=== PATIENT | female | born 1970 | race Caucasian/White ===

== ENCOUNTER → 2019-10-01 16:14 | Outpatient (BNVA) | payer MEDICARE, MEDICAID, SELFPAY | PROVIDERS: Family Provider Nurse Practitioner Family; PCP Nurse Practitioner Family; Visit Provider Nurse Practitioner Family | DX: J02.9 Acute pharyngitis, unspecified (principal); J06.9 Acute upper respiratory infection, unspecified | CPT/HCPCS: 87880 ==

== ENCOUNTER → 2019-12-17 10:43 | Outpatient (BNVA) | payer MEDICARE, MEDICAID, SELFPAY | PROVIDERS: Family Provider Nurse Practitioner Family; PCP Nurse Practitioner Family; Visit Provider Nurse Practitioner Family | DX: R39.9 Unspecified symptoms and signs involving the genitourinary system (principal); R10.31 Right lower quadrant pain | CPT/HCPCS: 81000 ==

== ENCOUNTER → 2020-01-02 12:11 | Outpatient (BNVA) | payer MEDICARE, MEDICAID, SELFPAY | PROVIDERS: Family Provider Nurse Practitioner Family; PCP Nurse Practitioner Family; Visit Provider Nurse Practitioner Family | DX: L98.9 Disorder of the skin and subcutaneous tissue, unspecified (principal) | CPT/HCPCS: 88305 ==

== ENCOUNTER → 2020-05-21 10:01 | Outpatient (BNVA) | payer MEDICARE, MEDICAID, SELFPAY | PROVIDERS: Family Provider Nurse Practitioner Family; PCP Nurse Practitioner Family; Visit Provider Nurse Practitioner Family | DX: Z11.59 Encounter for screening for other viral diseases (principal); Z20.828 Contact with and (suspected) exposure to other viral communicable diseases; R05 Cough | CPT/HCPCS: 87635 ==

== ENCOUNTER → 2020-11-04 10:59 | Outpatient (BNVA) | payer MEDICARE, MEDICAID, SELFPAY | PROVIDERS: Family Provider Nurse Practitioner Family; PCP Nurse Practitioner Family; Visit Provider Nurse Practitioner Family | DX: I10 Essential (primary) hypertension (principal) | CPT/HCPCS: 80053; 80061; 84443 ==

== ENCOUNTER → 2021-01-14 09:41 | Outpatient (BNVA) | payer MEDICARE, MEDICAID, SELFPAY | PROVIDERS: Family Provider Nurse Practitioner Family; PCP Nurse Practitioner Family; Visit Provider Nurse Practitioner Family | DX: I10 Essential (primary) hypertension (principal); E78.5 Hyperlipidemia, unspecified | CPT/HCPCS: 80061 ==

== ENCOUNTER → 2021-02-10 08:27 | Outpatient (BNVA) | payer MEDICARE, MEDICAID, SELFPAY | PROVIDERS: Family Provider Nurse Practitioner Family; PCP Nurse Practitioner Family; Visit Provider Nurse Practitioner Family | DX: R05 Cough (principal); Z20.822 Contact with and (suspected) exposure to COVID-19 | CPT/HCPCS: 87635 ==

== ENCOUNTER → 2021-11-26 08:29 | Outpatient (BNVA) | payer MEDICARE, MEDICAID, SELFPAY | PROVIDERS: Family Provider Nurse Practitioner Family; PCP Nurse Practitioner Family; Visit Provider Nurse Practitioner Family | DX: I10 Essential (primary) hypertension (principal); F41.9 Anxiety disorder, unspecified | CPT/HCPCS: 80053; 80061; 84443 ==

== ENCOUNTER → 2022-09-01 09:05 | Outpatient (BNVA) | payer MEDICARE, MEDICAID, SELFPAY | PROVIDERS: Family Provider Nurse Practitioner Family; PCP Nurse Practitioner Family; Visit Provider Nurse Practitioner Family | DX: M25.50 Pain in unspecified joint (principal); I10 Essential (primary) hypertension; F41.9 Anxiety disorder, unspecified; R68.89 Other general symptoms and signs | CPT/HCPCS: 80053; 80061; 84439; 84443; 84481; 84550; 86038; 86431 ==

== ENCOUNTER → 2022-09-06 11:36 | Outpatient (BNVA) | payer MEDICARE, MEDICAID, SELFPAY | PROVIDERS: Family Provider Nurse Practitioner Family; PCP Nurse Practitioner Family; Visit Provider Nurse Practitioner Family | DX: E55.9 Vitamin D deficiency, unspecified (principal); M25.50 Pain in unspecified joint; R42 Dizziness and giddiness | CPT/HCPCS: 82306; 83735 ==

== ENCOUNTER → 2023-01-14 10:31 | Outpatient (BNVA) | payer MEDICARE, MEDICAID, SELFPAY | PROVIDERS: Family Provider Nurse Practitioner Family; PCP Nurse Practitioner Family; Visit Provider Otolaryngology | DX: M89.8X8 Other specified disorders of bone, other site (principal) | CPT/HCPCS: 99203 ==

== ENCOUNTER 2023-01-20 06:59 | Outpatient (CLI) | payer MEDICARE, MEDICAID, SELFPAY ==
--- NOTE | 2023-01-20 07:00 | CT_ITS ---
WS: [id number] CT HEAD TECHNIQUE: Noncontrast CT of the head obtained from the skullbase to the vertex. CLINICAL INFORMATION: evaluation of the styloid proccess COMPARISON: 2013 DLP: 1209.[address] scans at [facility] use at least one of these dose optimization techniques: automated e xposure control; mA and/or kV adjustment per patient size (includes targeted exams where dose is matc hed to clinical indication); or iterative reconstruction. FINDINGS: No evidence of intracranial hemorrhage or mass effect. Prior postoperative changes occipital cranioto my with suboccipital craniectomy. Chiari decompression. Postoperative changes are new since 2013. Chr onic encephalomalacia LEFT parasagittal cerebellum. Normal 4th ventricle. No hydrocephalus. Benign basal ganglia calcifications. No extra-axial fluid collections. Paranasal sinuses and mastoid air cells well aerated. No other suspicious findings. CT/CT head wo con* [id number] IMPRESSION: 1. No evidence of intracranial hemorrhage or mass effect. 2. Interval postoperative changes Chiari decompression. No hydrocephalus. Norm al 4th ventricle. 3. Chronic encephalomalacia in the LEFT parasagittal cerebellum may be postope rative sequela. 4. Mild intracranial vascular calcification. 5. No other suspicious findings.
--- NOTE | 2023-01-20 07:30 | CT_ITS ---
WS: [id number] CT NECK TECHNIQUE: Noncontrast CT of the neck with coronal and sagittal reformatted images. CLINICAL INFORMATION: examination of the styloid proccess. Pain in throat, headaches, dizziness, COMPARISON: None. DLP: 1209.[address] scans at [facility] use at least one of these dose optimization techniques: automated e xposure control; mA and/or kV adjustment per patient size (includes targeted exams where dose is matc hed to clinical indication); or iterative reconstruction. FINDINGS:Styloid process on the RIGHT measures 2.3 CM. LEFT styloid process measures 2.2 CM within no rmal limits (Normal less than 3 cm). 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 Mastoid air cells are well aerated. Partially visualized paranasal sinuses are well aerated. Normal p osterior nasopharynx. Normal parapharyngeal fat. Lung apices are well aerated. Parotid glands are nor mal. Normal submandibular glands. Straightening of the normal cervical lordosis. Slight anterolisthes is C4 on C5. No evidence of supraglottic or glottic mass. Normal subglottic airway. No cervical lymphadenopathy. Dental artifact degrades some images. Moderate to advanced RIGHT facet arthropathy RIGHT C4-C5 and LEFT C5-C6. CT/CT neck wo con [id number] IMPRESSION: 1. No evidence of supraglottic or glottic mass. 2. No cervical lymphadenopathy. 3. Normal salivary glands. 4. A few tiny nodules in the thyroid. 5. Styloid processes within normal limits measuring less than 3 cm. 6. Mastoid air cells are well aerated. 7. Grade 1 anterolisthesis C4 on C5. Recommend Flexion-extension radiographs f or instability. 8. Moderate to advanced facet arthropathy RIGHT C4-C5 and LEFT C5-C6.
== END 2023-01-20 07:00 | disposition home or self-care (01) ==
PROVIDERS: PCP Nurse Practitioner Family; Visit Provider Otolaryngology
DX: M89.8X8 Other specified disorders of bone, other site (principal); M47.812 Spondylosis without myelopathy or radiculopathy, cervical region; G93.89 Other specified disorders of brain
CPT/HCPCS: 70450; 70490

== ENCOUNTER → 2023-01-21 09:45 | Outpatient (BNVA) | payer MEDICARE, MEDICAID, SELFPAY | PROVIDERS: PCP Nurse Practitioner Family; Visit Provider Otolaryngology | DX: Z71.1 Person with feared health complaint in whom no diagnosis is made (principal) | CPT/HCPCS: 99213; 99214 ==

== ENCOUNTER 2023-01-26 16:15 | Observation (INO) | payer MEDICARE, MEDICAID, SELFPAY ==
[2023-01-26] VITALS (13 sets, daily range): BP systolic 109–171; BP diastolic 68–105; PULSE 21–80; RESP 11–24; TEMP 36.5–36.7; O2SAT 92–100
--- NOTE | 2023-01-26 16:18 | ECG_ITS ---
[facility] Test Date: 2023-01-26 Pat Name: Philomena De La Rosa Department: Room: Gender: Female Beamer Hand: : 1970 Requested By: Christina Story Order Number: [id number] Crys MD: Kaleigh Atkinson M.D. Measurements Intervals [place] Rate: 72 P: 62 CT: 172 QRS: 88 QRSD: 130 T: 2 QT: 413 QTc: 453 Interpretive Statements SINUS RHYTHM POSSIBLE LEFT ATRIAL ENLARGEMENT [-0.1mV P-WAVE IN V1/V2] MODERATE INTRAVENTRICULAR CONDUCTION DELAY [110+ ms QRS DURATION] ST DEVIATION AND MODERATE T-WAVE ABNORMALITY, CONSIDER ANTERIOR ISCHEMIA [-0.1+ mV T-WAVE IN V3/V4] No previous ECG available for comparison Electronically Signed On 01-27-2023 11:03:29 CDT by Kaleigh Atkinson M.D. [id number]
--- NOTE | 2023-01-26 16:18 | XR_ITS ---
WS: [id number] Exam: XR chest 1V portable [id number] Date/Time of Exam: 01/26/2023 4:21 PM Reason For Exam: chest pain Comparison 03/27/2013. The lungs are fully expanded and clear. A rounded density superimposes the left lower lung zone and p robably represents a nipple shadow or a button. Bony structures are intact. Normal cardiomediastinal silhouette. XR/XR chest 1V portable [id number] IMPRESSION: 1. No acute cardiopulmonary finding.
[2023-01-26 16:51] LABS: Basophils # 0.1 10^3/uL (0.0-0.1); Basophils % 0.9 %; Eosinophils # 0.1 10^3/uL (0.0-0.8); Eosinophils % 1.6 %; Hematocrit 39.2 % (37.0-47.0); Hemoglobin 11.7 g/dL (11.5-15.3); Lymphocytes # 2.1 10^3/uL (0.8-4.8); Lymphocytes % 36.7 %; Mean Corpuscular HGB Conc 29.8 g/dL (30.0-36.0); Mean Corpuscular Hemoglobin 27.5 pg (28.0-34.0); Mean Corpuscular Volume 92.2 fl (81-99); Mean Platelet Volume 11.4 fL (7.4-10.4); Monocytes # 0.5 10^3/uL (0.2-0.9); Monocytes % 7.9 %; Neutrophils # 3.06 10^3/uL (1.8-7.7); Neutrophils % 52.7 %; Nucleated Red Blood Cells % 0 %; Platelet Count 180 10^3/cmm (130-400); Red Blood Count 4.25 10^6/uL (4.1-5.3); Red Cell Distribution Width 15.3 % (12.1-15.1); White Blood Count 5.8 10^3/uL (4.0-10.0)
[2023-01-26 17:09] LABS: Troponin(5th) Baseline 6 ng/L (0-10)
[2023-01-26 17:14] LABS: Alanine Aminotransferase 12 U/L (0-33); Albumin Level 4.3 g/dL (3.5-5.2); Alkaline Phosphatase 84 U/L (35-105); Anion Gap 15.2 (5-19); Aspartate Amino Transferase 15 U/L (0-32); Blood Urea Nitrogen 8 mg/dL (6-20); Calcium 8.6 mg/dL (8.5-10.5); Carbon Dioxide 19 mmol/L (22-29); Chloride 107 mmol/L (98-107); Globulin 2.3 g/dL (1.3-4.6); Glomerular Filtration Rate 87.5 mL/min (90-130); Glucose 85 mg/dL (65-115); Osmolality Calculated 284 mOsm/kg (285-295); Potassium 3.2 mmol/L (3.5-5.1); Sodium 138 mmol/L (136-145); Total Bilirubin 0.3 mg/dL (0.15-1.2); Total Protein 6.6 g/dL (6.6-8.7)
--- NOTE | 2023-01-26 17:42 | W.ED.CHESTPA ---
Documented by User: Eran Palacios DO 01/26/23 17:44 HPI - Chest Pain General: Chief Complaint: Chest Pain Stated Complaint: Chest pain, Head pain, Left arm pain Time Seen by Provider: 01/26/23 16:55 History of Present Illness: Patient presents ER with left-sided chest pain that radiates to the back also to the left arm patient does have a Chiari malformation which makes her left side of her head hurt and left side of her neck hurt frequently. Patient is nauseous today. Patient recently states that her doctor diagnosed her with POTS syndrome however she is on for sure if she actually has it. Patient states the chest pain is worsened today with no known cause. Review of Systems General: Reports: 10 or more systems reviewed and unremarkable except in HPI and below PFSH ED PFSH: Medical History Anxiety History of Chiari malformation Surgical History History of brain shunt Family History Mother CAD (coronary artery disease) Lung disease Father CAD (coronary artery disease) Social History Smoking and tobacco status: never smoked Second hand smoke exposure: No Smoking risk assessment/counseling performed?: No Alcohol intake: never Desire information about alcohol rehabilitation?: No Counseling given: No Substance/Drug Use: never Desire information about substance/drug rehabilitation?: No Counseling given: No Adopted: No Lives independently: Yes Household members: children Current gender identity: Female Special mercedes needs: No Physical Exam Const: COMMON NORMALS: no acute distress, average body habitus, patient oriented x3, no limitations, healthy appearing, alert and well nourished HENMT: COMMON NORMALS: normocephalic, atraumatic, hearing grossly normal bilaterally, external ears normal, Normal external nose present and moist oral mucous membranes HEAD & SCALP: normocephalic and atraumatic NOSE: Normal external nose present EXTERNAL EAR: Yes external ears normal Neck/C-Spine: COMMON NORMALS: no JVD Chest: COMMONS NORMALS: normal inspection of the chest and normal palpation of entire chest wall Resp: COMMON NORMALS: normal respiratory effort, No retractions, No use of accessory muscles and clear to auscultation bilaterally AUSCULTATION: clear to auscultation bilaterally Cardio: COMMON NORMALS: no JVD, regular rate, regular rhythm, S1 normal heart sound present, S2 normal heart sound present, No gallops present (Cardio), No clicks present (Cardio), No murmurs present (Cardio) and No rub (Cardio) RATE: regular rate RHYTHM: regular rhythm HEART SOUNDS: S1 normal heart sound present and S2 normal heart sound present GI: COMMON NORMALS: Normal to inspection, nondistended, normoactive bowel sounds present, Soft to palpation, non-tender, No hepatosplenomegaly present and no masses PALPATION: Yes Soft to palpation and Yes No hepatosplenomegaly present : COMMON NORMALS: Yes no CVA tenderness BLADDER/KIDNEY EXAM: Yes no CVA tenderness Back/Pelvis: COMMON NORMALS: no CVA tenderness Neuro: COMMON NORMALS: patient oriented x3 SENSORIUM/ORIENTATION: Yes alert Course Vital Signs: Vital signs: Vital Signs Temperature 97.3 F L 01/27/23 07:36 Pulse Rate 72 01/27/23 14:22 Respiratory Rate 19 H 01/27/23 07:36 Blood Pressure 107/68 01/27/23 14:22 Pulse Oximetry 99 01/27/23 07:36 Oxygen Delivery Me thod Room Air 01/27/23 07:36 MDM - Chest Pain Differential Diagnosis Unlikely acute massive pulmonary embolism, acute respiratory failure, acute myocardial infarction, cardiac arrest or sudden cardiac Medical Records I reviewed the patient's medical records. Lab Data I reviewed the patient's lab results. 01/26/23 16:42 01/27/23 04:20 Radiology Impressions Chest X-Ray 01/26/23 16:18 IMPRESSION: 1. No acute cardiopulmonary finding. Head/Neck CTA 01/26/23 18:42 IMPRESSION: 1. No large artery occlusion or stenosis. 2. No acute intracranial abnormality. IMPRESSION: 1. No large artery occlusion or stenosis. COMMENTS: Consistent with the [place] [employer]'s Incidental Findings Committee white paper (J Am Kip Radiol 2015): In patients aged 35 years and older with an incidental thyroid nodule equal to or greater than 1.[address], MRI or extrathyroidal US, further evaluation with dedicated thyroid US is recommended for patients with normal life expectancy and without comorbidities. For smaller nodules without suspicious features, no further evaluation or follow up is recommended. REFERENCES: NASCET CRITERIA. The degree of stenosis in the cervical segment of the internal carotid artery is based on NASCET criteria. Normal is no stenosis. Mild is less than 50% stenosis. Moderate is 50-69% stenosis. Severe is 70% to 99% stenosis. Total occlusion is no detectable patent lumen. Laboratory Results WBC 5.8 10^3/uL (4.0-10.0) 01/26/23 16:42 RBC 4.25 10^6/uL (4.1-5.3) 01/26/23 16:42 Hgb 11.7 g/dL (11.5-15.3) 01/26/23 16:42 Hct 39.2 % (37.0-47.0) 01/26/23 16:42 MCV 92.2 fl (81-99) 01/26/23 16:42 MCH 27.5 pg (28.0-34.0) L 01/26/23 16:42 MCHC 29.8 g/dL (30.0-36.0) L 01/26/23 16:42 RDW 15.3 % (12.1-15.1) H 01/26/23 16:42 Plt Count 180 10^3/cmm (130-400) 01/26/23 16:42 MPV 11.4 fL (7.4-10.4) H 01/26/23 16:42 Neut % (Auto) 52.7 % 01/26/23 16:42 Lymph % (Auto) 36.7 % 01/26/23 16:42 Taliaferro % (Auto) 7.9 % 01/26/23 16:42 Eos % (Auto) 1.6 % 01/26/23 16:42 Baso % (Auto) 0.9 % 01/26/23 16:42 Neut # (Auto) 3.06 10^3/uL (1.8-7.7) 01/26/23 16:42 Lymph # (Auto) 2.1 10^3/uL (0.8-4.8) 01/26/23 16:42 Taliaferro # (Auto) 0.5 10^3/uL (0.2-0.9) 01/26/23 16:42 Eos # (Auto) 0.1 10^3/uL (0.0-0.8) 01/26/23 16:42 Baso # (Auto) 0.1 10^3/uL (0.0-0.1) 01/26/23 16:42 Nucleated RBC % (auto) 0 % 01/26/23 16:42 Nucleated RBCs # 0.0 /100WBC 01/26/23 16:42 Sodium 138 mmol/L (136-145) 01/26/23 16:42 Potassium 3.2 mmol/L (3.5-5.1) L 01/26/23 16:42 Chloride 107 mmol/L (98-107) 01/26/23 16:42 Carbon Dioxide 19 mmol/L (22-29) L 01/26/23 16:42 Anion Gap 15.2 (5-19) 01/26/23 16:42 BUN 8 mg/dL (6-20) 01/26/23 16:42 Creatinine 0.7 mg/dL (0.5-0.9) 01/26/23 16:42 GFR Calculation 87.5 mL/min (90-130) L 01/26/23 16:42 Glucose 85 mg/dL (65-115) 01/26/23 16:42 Calculated Osmolality 284 mOsm/kg (285-295) L 01/26/23 16:42 Calcium 8.6 mg/dL (8.5-10.5) 01/26/23 16:42 Magnesium 1.9 mg/dL (1.7-2.3) 01/26/23 18:38 Total Bilirubin 0.3 mg/dL (0.15-1.2) 01/26/23 16:42 AST 15 U/L (0-32) 01/26/23 16:42 ALT 12 U/L (0-33) 01/26/23 16:42 Alkaline Phosphatase 84 U/L (35-105) 01/26/23 16:42 Troponin T Baseline 6 ng/L (0-10) 01/26/23 16:42 Troponin T 120 Minute 6.00 ng/L (0-10) 01/26/23 18:38 Delta Troponin T 0 ABS# (0-10) 01/26/23 18:38 Total Protein 6.6 g/dL (6.6-8.7) 01/26/23 16:42 Albumin 4.3 g/dL (3.5-5.2) 01/26/23 16:42 Globulin 2.3 g/dL (1.3-4.6) 01/26/23 16:42 Lipase 22 U/L (13-60) 01/26/23 18:38 Nasal Influ A H1 2009 PCR Not detected (NOT DETECT) 01/26/23 19:25 Adenovirus (PCR) Not detected (NOT DETECT) 01/26/23 19:25 C. pneumoniae DNA (PCR) Not detected (NOT DETECT) 01/26/23 19:25 Coronavirus 229E (PCR) Not detected (NOT DETECT) 01/26/23 19:25 Human Metapneumovir PCR Not detected (NOT DETECT) 01/26/23 19:25 Influenza A (H1) PCR Not detected (NOT DETECT) 01/26/23 19:25 Influenza A (H3) PCR Not detected (NOT DETECT) 01/26/23 19:25 Influenza Type A (PCR) Not detected (NOT DETECT) 01/26/23 19:25 Influenza Type B (PCR) Not detected (NOT DETECT) 01/26/23 19:25 M. pneumoniae (PCR) Not detected (NOT DETECT) 01/26/23 19:25 Parainfluenza 1 (PCR) Not detected (NOT DETECT) 01/26/23 19:25 Parainfluenza 2 (PCR) Not detected (NOT DETECT) 01/26/23 19:25 Parainfluenza 3 (PCR) Not detected (NOT DETECT) 01/26/23 19:25 Parainfluenza 4 (PCR) Not detected (NOT DETECT) 01/26/23 19:25 RSV Type A (PCR) Not detected (NOT DETECT) 01/26/23 19:25 RSV Type B (PCR) Not detected (NOT DETECT) 01/26/23 19:25 Entero/Rhino (PCR) Not detected (NOT DETECT) 01/26/23 19:25 SARS-CoV-2 (PCR) Not detected (NOT DETECT) 01/26/23 19:25 EKG Data EKG 1: I personally reviewed and interpreted this EKG as follows: EKG interpretation date: 01/26/23 EKG interpretation time: 16:28 Prior EKG tracings: not available for review Interpretation: EKG showed ventricular rate 72 beats a minute, [place] interval 172, QRS 130, QTc 453, sinus rhythm, possible left atrial argument, moderate intraventricular conduction delay, ST deviation and moderate T wave abnormality consider anterior ischemia negative T waves in V3 V4 Discharge Plan Discharge Patient Disposition: Placed in Observation Admit Provider: Walt Rose Clinical Impression: Chest pain Discharge Diet: Cardiac Discharge Activity: Resume usual activity and Increase activity as tolerated Coding Level of Care Code ED Mechanism Assembler for Chg Fwd Documented by User: Alton Romo MD 02/08/23 04:27 HPI - Chest Pain General: Chief Complaint: Chest Pain Stated Complaint: Chest pain, Head pain, Left arm pain Time Seen by Provider: 01/26/23 16:55 PFSH ED PFSH: Medical History Anxiety History of Chiari malformation Surgical History History of brain shunt Family History Mother CAD (coronary artery disease) Lung disease Father CAD (coronary artery disease) Social History Smoking and tobacco status: never smoked Second hand smoke exposure: No Smoking risk assessment/counseling performed?: No Alcohol intake: never Desire information about alcohol rehabilitation?: No Counseling given: No Substance/Drug Use: never Desire information about substance/drug rehabilitation?: No Counseling given: No Adopted: No Lives independently: Yes Household members: children Current gender identity: Female Special mercedes needs: No Course Vital Signs: Vital signs: Vital Signs Temperature 97.3 F L 01/27/23 07:36 Pulse Rate 72 01/27/23 14:22 Respiratory Rate 19 H 01/27/23 07:36 Blood Pressure 107/68 01/27/23 14:22 Pulse Oximetry 99 01/27/23 07:36 Oxygen Delivery Me thod Room Air 01/27/23 07:36 MDM - Chest Pain Medical Decision Making Patient care handoff received from Dr. Palacios pending completion of ED evaluation. Patient received additional treatment for symptoms and subsequently reported some abnormal feeling on the left side of her face. I evaluated the patient, no evidence of allergic reaction, no clear focal neurologic deficits though patient does have complex history and reports headache worse than baseline and different than baseline. Repeat troponin is negative. No clear Laboratory etiology of patient's symptoms. Chest x-ray with no lobar consolidation or pneumothorax. CTA of head and neck demonstrates no acute abnormality. Patient continues to have discomfort on reassessment and her chest. Patient's EKG demonstrates sinus bradycardia with nonspecific interventricular conduction delay, no STEMI. She denies cardiac history and has not had a cardiac evaluation previously. She is moderate risk by heart score. I discussed possible disposition options. The results of ED evaluation were discussed with the patient including plan for admission due to requirement for level of care not available if discharged to prevent significant worsening/deterioration. Patient agreeable with plan. Discussed with hospitalist service who was agreeable to admit patient. Alton Romo MD Emergency Medicine Lab Data 01/26/23 16:42 01/27/23 04:20 Radiology Impressions Chest X-Ray 01/26/23 16:18 IMPRESSION: 1. No acute cardiopulmonary finding. Head/Neck CTA 01/26/23 18:42 IMPRESSION: 1. No large artery occlusion or stenosis. 2. No acute intracranial abnormality. IMPRESSION: 1. No large artery occlusion or stenosis. COMMENTS: Consistent with the [place] [employer]'s Incidental Findings Committee white paper (J Am Kip Radiol 2015): In patients aged 35 years and older with an incidental thyroid nodule equal to or greater than 1.[address], MRI or extrathyroidal US, further evaluation with dedicated thyroid US is recommended for patients with normal life expectancy and without comorbidities. For smaller nodules without suspicious features, no further evaluation or follow up is recommended. REFERENCES: NASCET CRITERIA. The degree of stenosis in the cervical segment of the internal carotid artery is based on NASCET criteria. Normal is no stenosis. Mild is less than 50% stenosis. Moderate is 50-69% stenosis. Severe is 70% to 99% stenosis. Total occlusion is no detectable patent lumen. Laboratory Results WBC 5.8 10^3/uL (4.0-10.0) 01/26/23 16:42 RBC 4.25 10^6/uL (4.1-5.3) 01/26/23 16:42 Hgb 11.7 g/dL (11.5-15.3) 01/26/23 16:42 Hct 39.2 % (37.0-47.0) 01/26/23 16:42 MCV 92.2 fl (81-99) 01/26/23 16:42 MCH 27.5 pg (28.0-34.0) L 01/26/23 16:42 MCHC 29.8 g/dL (30.0-36.0) L 01/26/23 16:42 RDW 15.3 % (12.1-15.1) H 01/26/23 16:42 Plt Count 180 10^3/cmm (130-400) 01/26/23 16:42 MPV 11.4 fL (7.4-10.4) H 01/26/23 16:42 Neut % (Auto) 52.7 % 01/26/23 16:42 Lymph % (Auto) 36.7 % 01/26/23 16:42 Taliaferro % (Auto) 7.9 % 01/26/23 16:42 Eos % (Auto) 1.6 % 01/26/23 16:42 Baso % (Auto) 0.9 % 01/26/23 16:42 Neut # (Auto) 3.06 10^3/uL (1.8-7.7) 01/26/23 16:42 Lymph # (Auto) 2.1 10^3/uL (0.8-4.8) 01/26/23 16:42 Taliaferro # (Auto) 0.5 10^3/uL (0.2-0.9) 01/26/23 16:42 Eos # (Auto) 0.1 10^3/uL (0.0-0.8) 01/26/23 16:42 Baso # (Auto) 0.1 10^3/uL (0.0-0.1) 01/26/23 16:42 Nucleated RBC % (auto) 0 % 01/26/23 16:42 Nucleated RBCs # 0.0 /100WBC 01/26/23 16:42 Sodium 138 mmol/L (136-145) 01/26/23 16:42 Potassium 3.2 mmol/L (3.5-5.1) L 01/26/23 16:42 Chloride 107 mmol/L (98-107) 01/26/23 16:42 Carbon Dioxide 19 mmol/L (22-29) L 01/26/23 16:42 Anion Gap 15.2 (5-19) 01/26/23 16:42 BUN 8 mg/dL (6-20) 01/26/23 16:42 Creatinine 0.7 mg/dL (0.5-0.9) 01/26/23 16:42 GFR Calculation 87.5 mL/min (90-130) L 01/26/23 16:42 Glucose 85 mg/dL (65-115) 01/26/23 16:42 Calculated Osmolality 284 mOsm/kg (285-295) L 01/26/23 16:42 Calcium 8.6 mg/dL (8.5-10.5) 01/26/23 16:42 Magnesium 1.9 mg/dL (1.7-2.3) 01/26/23 18:38 Total Bilirubin 0.3 mg/dL (0.15-1.2) 01/26/23 16:42 AST 15 U/L (0-32) 01/26/23 16:42 ALT 12 U/L (0-33) 01/26/23 16:42 Alkaline Phosphatase 84 U/L (35-105) 01/26/23 16:42 Troponin T Baseline 6 ng/L (0-10) 01/26/23 16:42 Troponin T 120 Minute 6.00 ng/L (0-10) 01/26/23 18:38 Delta Troponin T 0 ABS# (0-10) 01/26/23 18:38 Total Protein 6.6 g/dL (6.6-8.7) 01/26/23 16:42 Albumin 4.3 g/dL (3.5-5.2) 01/26/23 16:42 Globulin 2.3 g/dL (1.3-4.6) 01/26/23 16:42 Lipase 22 U/L (13-60) 01/26/23 18:38 Nasal Influ A H1 2009 PCR Not detected (NOT DETECT) 01/26/23 19:25 Adenovirus (PCR) Not detected (NOT DETECT) 01/26/23 19:25 C. pneumoniae DNA (PCR) Not detected (NOT DETECT) 01/26/23 19:25 Coronavirus 229E (PCR) Not detected (NOT DETECT) 01/26/23 19:25 Human Metapneumovir PCR Not detected (NOT DETECT) 01/26/23 19:25 Influenza A (H1) PCR Not detected (NOT DETECT) 01/26/23 19:25 Influenza A (H3) PCR Not detected (NOT DETECT) 01/26/23 19:25 Influenza Type A (PCR) Not detected (NOT DETECT) 01/26/23 19:25 Influenza Type B (PCR) Not detected (NOT DETECT) 01/26/23 19:25 M. pneumoniae (PCR) Not detected (NOT DETECT) 01/26/23 19:25 Parainfluenza 1 (PCR) Not detected (NOT DETECT) 01/26/23 19:25 Parainfluenza 2 (PCR) Not detected (NOT DETECT) 01/26/23 19:25 Parainfluenza 3 (PCR) Not detected (NOT DETECT) 01/26/23 19:25 Parainfluenza 4 (PCR) Not detected (NOT DETECT) 01/26/23 19:25 RSV Type A (PCR) Not detected (NOT DETECT) 01/26/23 19:25 RSV Type B (PCR) Not detected (NOT DETECT) 01/26/23 19:25 Entero/Rhino (PCR) Not detected (NOT DETECT) 01/26/23 19:25 SARS-CoV-2 (PCR) Not detected (NOT DETECT) 01/26/23 19:25 Discharge Plan Discharge Patient Disposition: Placed in Observation Admit Provider: Walt Rose Clinical Impression: Chest pain Discharge Diet: Cardiac Discharge Activity: Resume usual activity and Increase activity as tolerated Coding Level of Care Code ED Mechanism Assembler for Andreina Lipscomb
[2023-01-26] MEDS: ketorolac 30 mg/mL INJ IVP (17:58)
[2023-01-26] MEDS: ondansetron 2 mg/ML SDV 2 mL 4 MG IVP (17:59)
[2023-01-26] MEDS: sodium chloride 0.9% 1,000 ML 999 ML IV (18:00)
[2023-01-26] MEDS: potassium chloride ER 20 mEq Tablet 40 MEQ PO (18:00)
--- NOTE | 2023-01-26 18:24 | ECG_ITS ---
[facility] Test Date: 2023-01-26 Pat Name: Philomena De La Rosa Department: Room: Gender: Female Nursing Coordinator: : 1970 Requested By: Christina Story Order Number: [id number] Spangler MD: Kaleigh Atkinson M.D. Measurements Intervals [place] Rate: 50 P: 59 CO: 183 QRS: 60 QRSD: 137 T: 15 QT: 447 QTc: 408 Interpretive Statements SINUS BRADYCARDIA POSSIBLE LEFT ATRIAL ENLARGEMENT [-0.1mV P-WAVE IN V1/V2] INTRAVENTRICULAR CONDUCTION DELAY [130+ ms QRS DURATION] Compared to ECG 01/26/2023 16:28:45 Sinus rhythm no longer present T-wave abnormality no longer present Possible ischemia no longer present Electronically Signed On 01-27-2023 12:23:39 CDT by Kaleigh Atkinson M.D. [id number]
--- NOTE | 2023-01-26 18:42 | CTR_ITS ---
PROCEDURE INFORMATION: Exam: CTA Head Without And With Contrast, Arteriography Exam date and time: 01/26/2023 7:13 PM Age: 52 years old Clinical indication: Pain; Headache; Prior surgery; Surgery date: 6+ months; Surgery type: Chiari malformation; Additional info: Worse headache, facial paresthesias TECHNIQUE: Imaging protocol: Computed tomographic angiography of the head without and with contrast. Exam focused on the arteries. 3D rendering (Not supervised by radiologist): MIP and/or 3D reconstructed images were created by the technologist. Radiation optimization: All CT scans at this facility use at least one of these dose optimization techniques: automated exposure control; mA and/or kV adjustment per patient size (includes targeted exams where dose is matched to clinical indication); or iterative reconstruction. Contrast material: OMNI 350; Contrast volume: 100 ml; Contrast route: INTRAVENOUS (IV); REPORTING DATA: Count of CT and Cardiac NM exams in prior 12 months: This patient has received 2 known CTs and 0 known cardiac nuclear medicine studies in the 12 months prior to the current study. COMPARISON: CT head wo con* [id number] 01/20/2023 7:23 AM RADIATION DOSE METRICS: Total DLP (mGy-cm): 1041.42 FINDINGS: ANTERIOR CIRCULATION: Right internal carotid artery: Intracranial segment is patent with no significant stenosis or occlusion. No aneurysm. Right middle cerebral artery: No occlusion or significant stenosis. No aneurysm. Right anterior cerebral artery: No occlusion or significant stenosis. No aneurysm. Left internal carotid artery: Intracranial segment is patent with no significant stenosis. No aneurysm. Left middle cerebral artery: No occlusion or significant stenosis. No aneurysm. Left anterior cerebral artery: No occlusion or significant stenosis. No aneurysm. POSTERIOR CIRCULATION: Right vertebral artery: No occlusion or significant stenosis. No aneurysm. Left vertebral artery: No occlusion or significant stenosis. No aneurysm. Basilar artery: Congenitally small basilar artery. No stenosis. Right posterior cerebral artery: Congenitally small P1 segment of the right posterior cerebral artery with a patent posterior communicating branch. Left posterior cerebral artery: Congenitally small P1 segment of the left posterior cerebral artery with a patent posterior communicating branch. Other arteries: No hyperdense artery. HEAD: Brain: Mild hypodensities in supratentorial periventricular and subcortical white matter, consistent with microangiopathy. No intracranial hemorrhage. Chronic encephalomalacia in the inferior left cerebellum. Occipital decompression. Findings consistent with Chiari 1 malformation. Cerebral ventricles: Normal. No ventriculomegaly. Bones/joints: Unremarkable. No acute fracture. Paranasal sinuses: Visualized sinuses are normal. No fluid levels. Mastoid air cells: Visualized mastoids are normal. No mastoid effusion. Soft tissues: Unremarkable. PROCEDURE INFORMATION: Exam: CTA Neck Without And With Contrast Exam date and time: 01/26/2023 7:13 PM Age: 52 years old Clinical indication: Pain; Headache; Prior surgery; Surgery date: 6+ months; Surgery type: Chiari malformation; Additional info: Worse headache, facial paresthesias TECHNIQUE: Imaging protocol: Computed tomographic angiography of the neck without and with contrast. 3D rendering (Not supervised by radiologist): MIP and/or 3D reconstructed images were created by the technologist. Radiation optimization: All CT scans at this facility use at least one of these dose optimization techniques: automated exposure control; mA and/or kV adjustment per patient size (includes targeted exams where dose is matched to clinical indication); or iterative reconstruction. Contrast material: OMNI 350; Contrast volume: 100 ml; Contrast route: INTRAVENOUS (IV); REPORTING DATA: Count of CT and Cardiac NM exams in prior 12 months: This patient has received 2 known CTs and 0 known cardiac nuclear medicine studies in the 12 months prior to the current study. COMPARISON: CT neck wo con [id number] 01/20/2023 7:23 AM RADIATION DOSE METRICS: Total DLP (mGy-cm): 1041.42 FINDINGS: Right common carotid artery: No stenosis. No dissection or occlusion. Right internal carotid artery: Mild calcified plaque in the proximal right internal carotid artery with 0% stenosis. Right external carotid artery: No occlusion or stenosis of the origin. Left common carotid artery: No stenosis. No dissection or occlusion. Left internal carotid artery: No stenosis of the extracranial segment. No dissection or occlusion. Left external carotid artery: No occlusion or stenosis of the origin. Right vertebral artery: No stenosis. No dissection or occlusion. Left vertebral artery: No stenosis. No dissection or occlusion. Thyroid: Subcentimeter right thyroid nodule or cyst. No follow-up imaging is recommended. Soft tissues: Bilateral breast implants. Bones/joints: No acute fracture. CT/CT angio headneck* [id number] IMPRESSION: 1. No large artery occlusion or stenosis. 2. No acute intracranial abnormality. IMPRESSION: 1. No large artery occlusion or stenosis. COMMENTS: Consistent with the [employer]'s Incidental Findings Committee white paper (J Am Kip Radiol 2015): In patients aged 35 years and older with an incidental thyroid nodule equal to or greater than 1.[address], MRI or extrathyroidal US, further evaluation with dedicated thyroid US is recommended for patients with normal life expectancy and without comorbidities. For smaller nodules without suspicious features, no further evaluation or follow up is recommended. REFERENCES: NASCET CRITERIA. The degree of stenosis in the cervical segment of the internal carotid artery is based on NASCET criteria. Normal is no stenosis. Mild is less than 50% stenosis. Moderate is 50-69% stenosis. Severe is 70% to 99% stenosis. Total occlusion is no detectable patent lumen.
[2023-01-26] MEDS: metoclopramide 5 mg/mL SDV 2 mL 10 MG IVP (18:48)
[2023-01-26] MEDS: fentaNYL 50 mcg/mL INJ 2mL 25 MCG IVP (18:48)
[2023-01-26 19:10] LABS: Troponin 5 2HR Delta 0 ABS# (0-10)
[2023-01-26] MEDS: iohexol 350 mg/mL 500 mL Btl (per mL) IV (19:51)
[2023-01-26] MEDS: morphine 4 mg/mL SDV 1 mL IVP (20:55)
[2023-01-26] MEDS: aspirin 81 mg Chew Tablet 324 MG PO (20:56)
[2023-01-26 21:04] LABS: Lipase 22 U/L (13-60); Magnesium 1.9 mg/dL (1.7-2.3)
--- NOTE | 2023-01-26 21:19 | P.HP_ITS ---
Providers/Chief Complaint Admitting Physician: Walt Rose DO Primary Care Provider: ANNA Murray Chief Complaint: Chest pain, Head pain, Left arm pain History of Present Illness Philomena De La Rosa is a 52 year old female with past medical history of hypertension and hyperlipidemia presents with chest pain on and off since 3 AM. She does report another episode 2 days prior. That only lasted a few minutes. Patient states the intensity of pain was at 3 AM and again has been on and off all day. She describes the pain as the bottom of her heart shaking . She has associated nausea, pain in her left elbow down to her fingers. She also describes a headache that is different than her typical generalized discomfort in her head. This headache is left-sided and frontal and feels like her head is going to blow off. She is sensitive to light and voices. Patient has no prior history of cardiac disease no history of stress test or cardiac catheterization. The simvastatin was just started this. Patient reports a very sedentary lifestyle. Patient states she has Chiari malformation that has underwent surgical intervention. She states that she has trouble with her blood pressure unless she lays around all day in the dark calm environment. She states she is not allowed to drive per her neurologist PCP and family. Review of Systems Const: Denies: fever(s) or chills Eyes: Denies: change in vision ENMT: Denies: throat pain or nasal congestion Card: Reports: chest pain; Denies: palpitations Resp: Denies: dyspnea or productive cough GI: Reports: nausea; Denies: abdominal pain, vomiting or change in stool character : Denies: dysuria Musc: Denies: back pain or extremity pain Skin/Breast: Denies: rash or lesions Neuro: Denies: dizziness Psych: Denies: anxiety or depression Endo: Reports: tired all the time Shlomo/Lymph: Denies: easy bruising or easy bleeding Medications/Allergies Home Medications Medication Instructions Recorded Confirmed Last Taken Type tramadol 50 mg tablet 50 mg PO BID PRN 09/17/19 01/21/23 Unknown History baclofen 20 mg tablet 20 mg PO TID #90 tabs 07/28/22 01/21/23 Unknown Rx pregabalin 50 mg capsule 50 mg PO DAILY 09/22/22 01/21/23 Unknown History tranexamic acid 650 mg tablet 650 mg PO BID PRN 09/22/22 01/21/23 Unknown History simvastatin 10 mg tablet See Rx Instructions .Route 11/16/22 01/21/23 Unknown Rx .COMPLEX #90 tabs lisinopril 20 mg tablet See Rx Instructions .Route 11/22/22 01/21/23 Unknown Rx .COMPLEX #180 tabs diclofenac sodium 75 mg See Rx Instructions .Route 12/16/22 01/21/23 Unknown Rx tablet,delayed release .COMPLEX #180 tabs topiramate 50 mg tablet See Rx Instructions .Route 12/16/22 01/21/23 Unknown Rx .COMPLEX #180 tabs ondansetron 8 mg disintegrating 8 mg PO DAILY 24 hours #14 tabs 12/22/22 01/21/23 Unknown Rx tablet metoprolol tartrate 25 mg tablet 12.5 mg PO BID 01/14/23 01/21/23 Unknown History Allergies Allergy/AdvReac Type Severity Reaction Status Date / Time Sulfa (Sulfonamide Allergy unknown Verified 01/21/23 09:56 Antibiotics) PFSH Acute 2 PFSH: Medical History Anxiety History of Chiari malformation Surgical History History of brain shunt Family History Mother CAD (coronary artery disease) Lung disease Father CAD (coronary artery disease) Social History Smoking and tobacco status: never smoked Second hand smoke exposure: No Smoking risk assessment/counseling performed?: No Alcohol intake: never Desire information about alcohol rehabilitation?: No Counseling given: No Substance/Drug Use: never Desire information about substance/drug rehabilitation?: No Counseling given: No Adopted: No Lives independently: Yes Household members: children Current gender identity: Female Special mercedes needs: No Vitals/I&O/Wt Last Vital Signs Temp 98.1 F 01/26/23 16:20 Pulse 72 01/26/23 19:30 Resp 16 01/26/23 20:55 BP 123/83 01/26/23 19:30 Pulse Ox 100 01/26/23 19:30 O2 Del Method Room Air 01/26/23 19:30 Weight last 48 hrs Weight 58.967 kg Physical Exam Narrative: Patient is seen lying in bed in the dark. She is squinting due to headache pain. She is thin. Neurologic: Alert oriented to person place time and situation nonfocal exam. HEENT head is normocephalic atraumatic,pupils are equal round reactive to light and accommodation ocular muscles are intact there is no scleral icterus, nasopharyngeal mucosa moist and pink. Neck is supple no JVD carotid bruits or lymphadenopathy Heart: Regular rate and rhythm normal S1-S2 without murmurs clicks gallops or rubs lungs: Normal aeration lungs are clear to auscultation no wheezes rales or rhonchi Abdomen: Soft nontender nondistended positive bowel sounds no hepatosplenomegaly Extremities no clubbing cyanosis or lorin skin no rashes or lesions noted Lymph: No lymphadenopathy noted in the neck axilla or inguinal regions Data 01/26/23 16:42 01/26/23 16:42 CXR: My impression: No acute cardiopulmonary findings Radiologist's impression: Not read yet Other CT: Radiologist's impression: CTA head and neck IMPRESSION: 1. No large artery occlusion or stenosis. 2. No acute intracranial abnormality A&P Assessment and plan (1) Chest pain: Patient's risk factors are hypertension hyperlipidemia and a good clinical scenario. Patient is at moderate risk of coronary event. Will admit overnight a pharmacologic stress echo. Telemetry, EKG of change of chest pain, aspirin (2) Hyperlipidemia: Qualifiers: Hyperlipidemia type: mixed hyperlipidemia Qualified Code(s): E78.2 - Mixed hyperlipidemia (3) Hypertension: (4) Headache: Will prescribe Benadryl tonight to help with headache. Attestations Medical Necessity Statement*: Patient requires overnight stay in observation for a pharmacologic stress test in a.m. if negative will discharge home. Coding Level of Care Code Acute Code for Chg Fwd Diagnoses Chest pain R07.9 Hyperlipidemia E78.2 Hyperlipidemia type: mixed hyperlipidemia Hypertension I10 Headache R51.9
--- NOTE | 2023-01-26 22:18 | ECG_ITS ---
[facility] Test Date: 2023-01-26 Pat Name: Philomena De La Rosa Department: Room: 261 Gender: Female Manager Meat: : 1970 Requested By: Christina Story Order Number: [id number] Spangler MD: Kaleigh Atkinson M.D. Measurements Intervals [place] Rate: 62 P: 56 [place]: 190 QRS: 74 QRSD: 138 T: 3 QT: 441 QTc: 451 Interpretive Statements SINUS RHYTHM POSSIBLE LEFT ATRIAL ENLARGEMENT [-0.1mV P-WAVE IN V1/V2] INTRAVENTRICULAR CONDUCTION DELAY [130+ ms QRS DURATION] Compared to ECG 01/26/2023 18:24:17 Sinus bradycardia no longer present Electronically Signed On 01-27-2023 12:23:23 CDT by Kaleigh Atkinson M.D. [id number]
[2023-01-26] MEDS: diclofenac 75 mg DR Tablet PO (22:49)
[2023-01-26] MEDS: lisinopril 20 mg Tablet PO (22:50)
[2023-01-26] MEDS: heparin 5,000 unit/mL INJ 1 mL 5000 UNIT SUBCUT (22:50)
[2023-01-26] MEDS: TRAMadol 50 mg Tablet PO (22:54)
[2023-01-26 23:13] LABS: Adenovirus Not Detected (NOT DETECT); Chlamydia Pneumoniae Not Detected (NOT DETECT); Coronavirus 229E,HKU1,NL63,OC4 Not Detected (NOT DETECT); Human Metapneumovirus Not Detected (NOT DETECT); Human Rhinovirus/Enterovirus Not Detected (NOT DETECT); Influenza A Not Detected (NOT DETECT); Influenza A H1 Not Detected (NOT DETECT); Influenza A H1-2009 Not Detected (NOT DETECT); Influenza A H3 Not Detected (NOT DETECT); Influenza B Not Detected (NOT DETECT); Mycoplasma Pneumoniae Not Detected (NOT DETECT); Parainfluenza Virus Type 1 Not Detected (NOT DETECT); Parainfluenza Virus Type 2 Not Detected (NOT DETECT); Parainfluenza Virus Type 3 Not Detected (NOT DETECT); Parainfluenza Virus Type 4 Not Detected (NOT DETECT); Respiratory Syncytial Virus A Not Detected (NOT DETECT); Respiratory Syncytial Virus B Not Detected (NOT DETECT); SARS-COV-2 Not Detected (NOT DETECT)
--- NOTE | 2023-01-27 | ECG_ITS ---
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 Interpretive Statements NAME OF STUDY: LEXISCAN SESTAMIBI STRESS TEST INDICATION: [Chest Pain] Procedure: At the baseline, the blood pressure was 120/77 mmHg with a heart rate of 83 bpm. The electrocardiogram showed normal sinus rhythm, incomplete right bundle branch block. The Lexiscan was infused over a period of 20 seconds. A total of 0.4 mg of Lexiscan was infused. The stress phase was continued for a total of 5 minutes. Heart rate was at the end of stress phase was 69 bpm and a blood pressure of 110/75 mmHg. The EKG at the peak infusion revealed normal sinus rhythm with no significant ST-T wave changes. Sestamibi was injected 20 seconds after the Lexiscan infusion. Blood pressure at the end of recovery phase was 106 / 63 mmHg with a heart rate of 65 bpm. Conclusion: 1. Normal EKG response to Lexiscan infusion 2. No Lexiscan induced chest pain or cardiac arrhythmia. 3. Normal blood pressure and heart rate response. 4. Sestamibi/sestamibi perfusion scan pending; see separate report. Electronically Signed On 01-29-2023 14:32:10 CDT by Lucius Loya M.D. [id number]
[2023-01-27 03:51] VITALS: BP 95/57; PULSE 62; RESP 16; TEMP 36.8; O2SAT 94
[2023-01-27 05:10] LABS: Anion Gap 12.8 (5-19); Blood Urea Nitrogen 10 mg/dL (6-20); Calcium 7.9 mg/dL (8.5-10.5); Carbon Dioxide 21 mmol/L (22-29); Chloride 112 mmol/L (98-107); Glomerular Filtration Rate 104.6 mL/min (90-130); Glucose 83 mg/dL (65-115); Osmolality Calculated 292 mOsm/kg (285-295); Potassium 3.8 mmol/L (3.5-5.1); Sodium 142 mmol/L (136-145)
[2023-01-27 07:36] VITALS: BP 108/67; PULSE 57; RESP 19; TEMP 36.3; O2SAT 99
--- NOTE | 2023-01-27 07:38 | NMCV_ITS ---
NM saba perf SPECT r/s* [id number] Philomena De La Rosa Age: 52 Gender: F : 1970 Exam Date: 01/27/2023 10:26 Ordering Phys: Gordon Koehler MD Technologist: VITO Stockton Exam Location: [facility] Indications: CHEST PAIN STRESS TEST Please see separate stress test report in [facility] for full findings IMAGE PROTOCOL Rest/Stress 1 Lexiscan Day Radiopharmaceutical Dose (mCi) Administration Site Administered by Rest: Tc-99m 10.4 IV VITO Stockton Sestamibi Stress:Tc-99m 32.6 IV VITO Da Silva Sestamibi Rest: 27-Jan-2023 60 Discovery 630 Stress: 27-Jan-2023 30 Discovery 630 0.4mg Lexiscan. Images obtained in supine and prone position. SPECT RESULTS Technical Quality: Excellent Raw Data Analysis: Breast attenuation Image Corrections: No attenuation or motion correction applied Summed Stress Score: 1 Summed Rest Score: 0 Summed Difference Score: 1 PERFUSION FINDINGS There is a small in size, reversible perfusion defect noted apical wall. This is consistent with small sized area of ischemia in LAD territory. FUNCTIONAL RESULTS (calculated via Gated SPECT) Stress Image LV EF (%): 81 Stress EDV (mL):74 TID: 0.93 Stress ESV (mL):14 FUNCTIONAL FINDINGS: There is normal left ventricular systolic function. IMPRESSIONS 1. Small sized area of ischemia is seen in LAD territory. Attenuation artifact can not be ruled out 2. LV systolic function is normal Lucius Loya MD (Electronically Signed) Final Date: 27 January 2023 12:29 S
[2023-01-27] MEDS: topiramate 25 mg Tablet 50 MG PO (08:21)
[2023-01-27] MEDS: aspirin 325 mg Tablet PO (08:21)
[2023-01-27] MEDS: lisinopril 20 mg Tablet PO (08:21)
[2023-01-27] MEDS: diclofenac 75 mg DR Tablet PO (08:21)
[2023-01-27] MEDS: TRAMadol 50 mg Tablet PO (08:21)
[2023-01-27] MEDS: baclofen 10 mg Tablet 20 MG PO (08:21)
[2023-01-27] MEDS: metoprolol tartrate 25 mg Tablet 12.5 MG PO (08:22)
--- NOTE | 2023-01-27 08:39 | PC.PHAR ---
Metoprolol Tartrate 25 mg was entered in error by Rosemary Watters - pt is taking Metoprolol succinate 25 mg daily- called [facility] to verify
[2023-01-27] MEDS: ondansetron 2 mg/ML SDV 2 mL 4 MG IVP (09:03)
[2023-01-27] MEDS: heparin 5,000 unit/mL INJ 1 mL 5000 UNIT SUBCUT (09:17)
--- NOTE | 2023-01-27 09:20 | USCV_ITS ---
Philomena De La Rosa Age: 52 Gender: F : 1970 Exam Date: 01/27/2023 14:36 Ordering Phys: Gordon Koehler MD Technologist: Jasvir Hallman [place] [facility] [place]ication: chest pain BP: 130 / 75 HR: 55 Rhythm: Sinus Technical Quality: Adequate MEASUREMENTS (Male / Female) Normal Values 2D ECHO LVOT Diameter 2.1 cm LV Ejection Fraction MOD 2C 68.0 % LV Ejection Fraction 2C AL 68.4 % LA Diameter 3.7 cm IVC Diameter 1.6 cm M-MODE LV Diastolic Diameter MM 4.5 cm 4.2 - 5.9 / 3.9 - 5.3 cm LV Systolic Diameter MM 2.5 cm LV Ejection Fraction MM Teich 77.1 % IVS Diastolic Thickness MM 0.9 cm 0.6 - 1.0 / 0.6 - 0.9 cm IVS Systolic Thickness MM 1.5 cm LVPW Diastolic Thickness MM 1.1 cm 0.6 - 1.0 / 0.6 - 0.9 cm LVPW Systolic Thickness MM 1.6 cm RV Diastolic Diameter MM 1.3 cm Aortic Annulus Diameter 3.1 cm LA Ao Ratio MM 1.2 MV E Point Septal Separation 0.6 cm DOPPLER AV Peak Velocity 127.0 cm/s LVOT Peak Velocity 98.0 cm/s AV Area Cont Eq vti 3.5 cm squared AV Area Cont Eq pk 2.8 cm squared MV Area PHT 3.3 cm squared Mitral E to A Ratio 1.5 MV E' Velocity 65.5 cm/s Mitral E to MV E' Ratio 11.1 Mitral E to LV E' Lateral Ratio 15.8 Mitral E to LV E' Septal Ratio 8.6 TR Peak Velocity 128.7 cm/s TR Peak Gradient 6.6 mmHg TV Peak E Velocity 69.0 cm/s Right Atrial Pressure 3.0 mmHg Pulmonary Artery Systolic Pressu 9.6 mmHg RV Acceleration Time 0.2 s FINDINGS Left Ventricle Left ventricle is normal in size. LV systolic function is normal with EF 55 to 60%. No regional wall motion abnormalities. Right Ventricle Normal size and function Right Atrium Normal in size Left Atrium Normal in size Mitral Valve Structurally normal mitral valve. Mild mitral regurgitation. Aortic Valve Structurally normal aortic valve. No significant stenosis or regurgitation. Tricuspid Valve Mild tricuspid regurgitation. Insufficient TR jet to calculate RVSP Pulmonic Valve Not well visualized Pericardium Normal Aorta Normal in size IVC Appears to be normal CONCLUSIONS LV systolic function is normal with EF of 55 to 60%. Mild mitral regurgitation. Mild tricuspid regurgitation. No comparison studies are available Lucius Loya MD (Electronically Signed) Final Date: 28 January 2023 14:04 S
[2023-01-27 09:29] VITALS: BP 122/79; BP 124/79; BP 128/77; PULSE 51; PULSE 58; PULSE 61
[2023-01-27 09:50] LABS: Chol HDL Ratio 4.38 mg/dL (0.0-4.40); Cholesterol 175 mg/dL (0-200); HDL Cholesterol 40 mg/dL (60-100); Iron 56 ug/dL (37-145); LDL Cholesterol Calculated 116 mg/dL (50-129); Percent Saturation 19.8 % (20-50); Total Iron Binding Capacity 282 mcg/dl; Triglycerides 94 mg/dL (0-150); Unsaturated Iron Binding 226 ug/dL (112-347); VLDL Cholestrol Calculation 19 mg/dL (0-30)
[2023-01-27 10:06] LABS: Vitamin B12 778 pg/mL (232-1245)
[2023-01-27 10:24] LABS: Estmated Average Glucose 100; Hemoglobin A1C 5.1 % (4.0-6.0)
--- NOTE | 2023-01-27 11:10 | PC.CHAP ---
Pastoral Care Encounter/Spiritual Assessment Type of Contact [] Declined horse trainer visit [] Patient/Family/Request visit [] Outpatient visit [] Follow-up visit [] Physician referral [] Code/Alert [x] Routine visit [] Staff referral [] Actively dying [] Patient sleeping [] Family support [] [] Out of room [] Palliative care [] [x] Receiving care in room [] Pre-surgical visit [] Trauma [] Long length of stay [] ICU visit [] Other: Relational/Emotional Strength [x] Patient feels connected with others/family/visitors/staff [] Distress [] Loneliness/isolation [] Abandonment Spirituality of Patient [x] Person of Sinai [] Attends Restorationism of their Sinai [x] Believes in Prayer [] Reads Bible or Hindu materials [] There are Spiritual issues to be addressed Producer Interventions [x] Prayer [x] Active listening [x] Non-anxious presence [x] Spiritual/emotional support [] Crisis/trauma care [x] Spiritual counseling [] Bereavement support [] Provided bereavement packet [] Provided Bible/devotional materials [] Provided toy/stuffed animal, coloring book to patient or family member [] Provided Communion [] Anointing/[place] [] Salvation [x] Completed spiritual assessment [] Other: Impact on Illness or Injury [] Angry [] Fearful [] Anxious [] Often cries [] Exhaustion [] Unable to work [] Unable to attend methodist [] Unable to walk/stand [] Unable to read [] Unable to drive [] Unable to eat/drink [] Unable to sleep [] Unable to be with family [] Patient intubated [] Other: Summary tests Stress tests waiting doctor for resuls has a good attitude well go home Time spent with patient 10 mins
[2023-01-27] MEDS: regadenoson 0.4 Mg/5 ml Syringe IVP (11:30)
[2023-01-27 12:24] VITALS: BP 107/68; PULSE 72
--- NOTE | 2023-01-27 13:26 | P.DS_ITS ---
Discharge Providers Date of Admission: 01/26/23 20:48 Date of Discharge: January 27, 2023 Attending Provider at Admission: Walt Rose DO Attending Provider at Discharge: Gordon Koehler MD Primary Care Provider: ANNA Murray Diagnoses at Discharge Discharge Diagnosis (1) Chest pain: Status: Acute (2) Hyperlipidemia: Status: Chronic Qualifiers: Hyperlipidemia type: mixed hyperlipidemia Qualified Code(s): E78.2 - Mixed hyperlipidemia (3) Hypertension: Status: Chronic (4) Headache: Status: Acute Reason for Visit Reason for Visit: Chest pain, Head pain, Left arm pain Brief History: History as per HPI: Philomena De La Rosa is a 52 year old female with past medical history of hypertension and hyperlipidemia presents with chest pain on and off since 3 AM.? She does report another episode 2 days prior.? That only lasted a few minutes.? Patient states the intensity of pain was at 3 AM and again has been on and off all day.? She describes the pain as the bottom of her heart shaking .? She has associated nausea, pain in her left elbow down to her fingers.? She also describes a headache that is different than her typical generalized discomfort in her head.? This headache is left-sided and frontal and feels like her head is going to blow off.? She is sensitive to light and voices. Patient has no prior history of cardiac disease no history of stress test or cardiac catheterization.? The simvastatin was just started this. Patient reports a very sedentary lifestyle.? Patient states she has Chiari malformation that has underwent surgical intervention.? She states that she has trouble with her blood pressure unless she lays around all day in the dark calm environment.? She states she is not allowed to drive per her neurologist PCP and family. Hospital Course Hospital Course Patient was admitted to the hospital further evaluation and management of chest pain to rule out ACS. During hospitalization her troponins remained negative. She did not have any further chest pain. Echocardiogram was done. Lexiscan was done which showed very small area of ischemia in LAD territory while attenuation cannot be ruled out. Care was discussed in detail with cardiology on-call who suggested medical management with advised to follow-up as an outpatient in cardiology office. Patient gave history of elevation of blood pressure on standing up for a long time with blood pressures going up to 160 mmHg. Patient had multiple orthostatic checks which were negative. Patient has been discharged in hemodynamically stable condition on baby aspirin, increase dose of simvastatin to 20 mg daily, continued on current antihypertensives with amlodipine 5 mg twice daily as needed for systolic blood pressure of more than 170 mmHg. She is to follow-up with a primary care provider within next 2 weeks and with cardiology office at earliest available appointment. Physical Exam Narrative: General: No acute distress, AO x3 Neurologic: Alert oriented to person place time and situation nonfocal exam. HEENT head is normocephalic atraumatic,pupils are equal round reactive to light and accommodation ocular muscles are intact there is no scleral icterus, nasopharyngeal mucosa moist and pink. Neck is supple no JVD carotid bruits or lymphadenopathy Heart: Regular rate and rhythm normal S1-S2 without murmurs clicks gallops or rubs lungs: Normal aeration lungs are clear to auscultation no wheezes rales or rhonchi Abdomen: Soft nontender nondistended positive bowel sounds no hepatosplenomegaly Extremities no clubbing cyanosis or lorin skin no rashes or lesions noted Lymph: No lymphadenopathy noted in the neck axilla or inguinal regions Discharge Data Studies Completed and Pending Completed Studies During Hospitalization Category Date Time Status CTA head neck [CT angio headneck* [id number]] Stat Cat Scan 01/26/23 18:42 Completed Cardiac Stress Test Request Routine Exams 01/27/23 06:00 Draft XR chest 1V portable [id number] Urgent Exams 01/26/23 16:18 Completed NM saba perf SPECT r/s* [id number] Routine Nuc Med 01/27/23 07:38 Completed Pending at discharge Category Date Time Status Cardiac Stress Test MIBI [Sestamibi Stress Test Request Exams 01/27/23 07:38 Ordered ] Routine CV. echo complete* [id number] Routine Ultrasound 01/27/23 09:20 Ordered Radiology Impressions Chest X-Ray 01/26/23 16:18 IMPRESSION: 1. No acute cardiopulmonary finding. Head/Neck CTA 01/26/23 18:42 IMPRESSION: 1. No large artery occlusion or stenosis. 2. No acute intracranial abnormality. IMPRESSION: 1. No large artery occlusion or stenosis. COMMENTS: Consistent with the [employer]'s Incidental Findings Committee white paper (J Am Kip Radiol 2015): In patients aged 35 years and older with an incidental thyroid nodule equal to or greater than 1.[address], MRI or extrathyroidal US, further evaluation with dedicated thyroid US is recommended for patients with normal life expectancy and without comorbidities. For smaller nodules without suspicious features, no further evaluation or follow up is recommended. REFERENCES: NASCET CRITERIA. The degree of stenosis in the cervical segment of the internal carotid artery is based on NASCET criteria. Normal is no stenosis. Mild is less than 50% stenosis. Moderate is 50-69% stenosis. Severe is 70% to 99% stenosis. Total occlusion is no detectable patent lumen. Lexiscan: PERFUSION FINDINGS ?There is a small in size, reversible perfusion defect noted apical wall.? This ?is consistent with small sized area of ischemia in LAD territory. ?FUNCTIONAL RESULTS ? ? (calculated via Gated SPECT) ? Stress Image LV EF (%):? ? 81 ? Stress EDV (mL):74 ? TID:? 0.93 ? Stress ESV (mL):14 ?FUNCTIONAL FINDINGS: ?There is normal left ventricular systolic function. ?IMPRESSIONS ?1. Small sized area of ischemia is seen in LAD territory. Attenuation artifact ?can not be ruled out ?2.? LV systolic function is normal ?Lucius Loya MD ?(Electronically Signed) ?Final Date:? ? ? 27 January 2023 ? 12:29 Laboratory Results WBC 5.8 10^3/uL (4.0-10.0) 01/26/23 16:42 RBC 4.25 10^6/uL (4.1-5.3) 01/26/23 16:42 Hgb 11.7 g/dL (11.5-15.3) 01/26/23 16:42 Hct 39.2 % (37.0-47.0) 01/26/23 16:42 MCV 92.2 fl (81-99) 01/26/23 16:42 MCH 27.5 pg (28.0-34.0) L 01/26/23 16:42 MCHC 29.8 g/dL (30.0-36.0) L 01/26/23 16:42 RDW 15.3 % (12.1-15.1) H 01/26/23 16:42 Plt Count 180 10^3/cmm (130-400) 01/26/23 16:42 MPV 11.4 fL (7.4-10.4) H 01/26/23 16:42 Neut % (Auto) 52.7 % 01/26/23 16:42 Lymph % (Auto) 36.7 % 01/26/23 16:42 [place] % (Auto) 7.9 % 01/26/23 16:42 Eos % (Auto) 1.6 % 01/26/23 16:42 Baso % (Auto) 0.9 % 01/26/23 16:42 Neut # (Auto) 3.06 10^3/uL (1.8-7.7) 01/26/23 16:42 Lymph # (Auto) 2.1 10^3/uL (0.8-4.8) 01/26/23 16:42 [place] # (Auto) 0.5 10^3/uL (0.2-0.9) 01/26/23 16:42 Eos # (Auto) 0.1 10^3/uL (0.0-0.8) 01/26/23 16:42 Baso # (Auto) 0.1 10^3/uL (0.0-0.1) 01/26/23 16:42 Nucleated RBC % (auto) 0 % 01/26/23 16:42 Nucleated RBCs # 0.0 /100WBC 01/26/23 16:42 Sodium 142 mmol/L (136-145) 01/27/23 04:20 Potassium 3.8 mmol/L (3.5-5.1) 01/27/23 04:20 Chloride 112 mmol/L (98-107) H 01/27/23 04:20 Carbon Dioxide 21 mmol/L (22-29) L 01/27/23 04:20 Anion Gap 12.8 (5-19) 01/27/23 04:20 BUN 10 mg/dL (6-20) 01/27/23 04:20 Creatinine 0.6 mg/dL (0.5-0.9) 01/27/23 04:20 GFR Calculation 104.6 mL/min (90-130) 01/27/23 04:20 Glucose 83 mg/dL (65-115) 01/27/23 04:20 Estimat Average Glucose 100 01/27/23 04:20 Hemoglobin A1c 5.1 % (4.0-6.0) 01/27/23 04:20 Calculated Osmolality 292 mOsm/kg (285-295) 01/27/23 04:20 Calcium 7.9 mg/dL (8.5-10.5) L 01/27/23 04:20 Magnesium 1.9 mg/dL (1.7-2.3) 01/26/23 18:38 Iron 56 ug/dL (37-145) 01/27/23 04:20 TIBC 282 mcg/dl 01/27/23 04:20 % Saturation 19.8 % (20-50) L 01/27/23 04:20 Unsat Iron Binding 226 ug/dL (112-347) 01/27/23 04:20 Total Bilirubin 0.3 mg/dL (0.15-1.2) 01/26/23 16:42 AST 15 U/L (0-32) 01/26/23 16:42 ALT 12 U/L (0-33) 01/26/23 16:42 Alkaline Phosphatase 84 U/L (35-105) 01/26/23 16:42 Troponin T Baseline 6 ng/L (0-10) 01/26/23 16:42 Troponin T 120 Minute 6.00 ng/L (0-10) 01/26/23 18:38 Delta Troponin T 0 ABS# (0-10) 01/26/23 18:38 Troponin T Hi Sens 6Hr 6.10 ng/L (0-10) 01/26/23 22:55 Troponin T Hi Sens 6Hr Delta 0.10 ng/L (0-12) 01/26/23 22:55 Total Protein 6.6 g/dL (6.6-8.7) 01/26/23 16:42 Albumin 4.3 g/dL (3.5-5.2) 01/26/23 16:42 Globulin 2.3 g/dL (1.3-4.6) 01/26/23 16:42 Triglycerides 94 mg/dL (0-150) 01/27/23 04:20 Cholesterol 175 mg/dL (0-200) 01/27/23 04:20 LDL Cholesterol, Calc 116 mg/dL (50-129) 01/27/23 04:20 Total VLDL Cholesterol 19 mg/dL (0-30) 01/27/23 04:20 HDL Cholesterol 40 mg/dL (60-100) L 01/27/23 04:20 Cholesterol/HDL Ratio 4.38 mg/dL (0.0-4.40) 01/27/23 04:20 Lipase 22 U/L (13-60) 01/26/23 18:38 Vitamin B12 778 pg/mL (232-1245) 01/27/23 04:20 Nasal Influ A H1 2009 PCR Not detected (NOT DETECT) 01/26/23 19:25 Adenovirus (PCR) Not detected (NOT DETECT) 01/26/23 19:25 C. pneumoniae DNA (PCR) Not detected (NOT DETECT) 01/26/23 19:25 Coronavirus 229E (PCR) Not detected (NOT DETECT) 01/26/23 19:25 Human Metapneumovir PCR Not detected (NOT DETECT) 01/26/23 19:25 Influenza A (H1) PCR Not detected (NOT DETECT) 01/26/23 19:25 Influenza A (H3) PCR Not detected (NOT DETECT) 01/26/23 19:25 Influenza Type A (PCR) Not detected (NOT DETECT) 01/26/23 19:25 Influenza Type B (PCR) Not detected (NOT DETECT) 01/26/23 19:25 M. pneumoniae (PCR) Not detected (NOT DETECT) 01/26/23 19:25 Parainfluenza 1 (PCR) Not detected (NOT DETECT) 01/26/23 19:25 Parainfluenza 2 (PCR) Not detected (NOT DETECT) 01/26/23 19:25 Parainfluenza 3 (PCR) Not detected (NOT DETECT) 01/26/23 19:25 Parainfluenza 4 (PCR) Not detected (NOT DETECT) 01/26/23 19:25 RSV Type A (PCR) Not detected (NOT DETECT) 01/26/23 19:25 RSV Type B (PCR) Not detected (NOT DETECT) 01/26/23 19:25 Entero/Rhino (PCR) Not detected (NOT DETECT) 01/26/23 19:25 SARS-CoV-2 (PCR) Not detected (NOT DETECT) 01/26/23 19:25 Vitals Last Vital Signs Temp 97.3 F L 01/27/23 07:36 Pulse 72 01/27/23 12:24 Resp 19 H 01/27/23 07:36 BP 107/68 01/27/23 12:24 Pulse Ox 99 01/27/23 07:36 O2 Del Method Room Air 01/27/23 07:36 Discharge Plan Discharge Patient Disposition: Home Condition: Stable Prescriptions: New aspirin 81 mg capsule 81 mg PO DAILY Qty: 30 0RF amlodipine 5 mg tablet 5 mg PO BID PRN (Reason: SBP more than 170 mmhg) Qty: 20 0RF Continued tramadol 50 mg tablet 50 mg PO BID PRN (Reason: Pain) tranexamic acid 650 mg tablet 650 mg PO BID PRN (Reason: menstral flow) pregabalin 50 mg capsule 50 mg PO DAILY ondansetron 8 mg tablet,disintegrating 8 mg PO DAILY 1 Days Qty: 14 0RF baclofen 20 mg tablet 20 mg PO TID Qty: 90 0RF lisinopril 20 mg tablet See Rx Instructions .ROUTE .COMPLEX Qty: 180 0RF Dose Instruction: TAKE 1 TABLET BY MOUTH TWICE DAILY Rx Instructions: TAKE 1 TABLET BY MOUTH TWICE DAILY diclofenac sodium 75 mg tablet,delayed release (DR/EC) See Rx Instructions .ROUTE .COMPLEX Qty: 180 0RF Dose Instruction: TAKE 1 TABLET BY MOUTH TWICE DAILY Rx Instructions: TAKE 1 TABLET BY MOUTH TWICE DAILY topiramate 50 mg tablet See Rx Instructions .ROUTE .COMPLEX Qty: 180 0RF Dose Instruction: TAKE 1 TABLET BY MOUTH TWICE DAILY Rx Instructions: TAKE 1 TABLET BY MOUTH TWICE DAILY metoprolol succinate 25 mg tablet extended release 24 hr 25 mg PO DAILY Changed simvastatin 10 mg tablet 20 mg PO DAILY Qty: 90 0RF Dose Instruction: TAKE 1 TABLET BY MOUTH DAILY Discharge Orders: Discharge Order (Routine); Ordered 01/27/23 Ordered By: Gordon Koehler Referrals: Ines Ivey FNP [Primary Care Provider] - 2 weeks Lucius Loya M.D [Physician] - 2 weeks Discharge Diet: Cardiac Discharge Activity: Resume usual activity and Increase activity as tolerated Patient Instructions: Opioid Safety Activity Restrictions/Additional Instructions: Take baby aspirin daily. Dose of simvastatin has been increased to 20 mg daily. Continue taking antihypertensives including lisinopril and metoprolol as before. Take amlodipine 5 mg twice daily as needed for a systolic blood pressure of more than 170 mmHg. Please increase your physical activity as much as possible. Please follow-up with primary care provider within next 2 weeks and with cardiology within next 2 weeks. Discharge Attestations Time Spent in Discharge Care*: greater than 30 min Specific Discharge Activities: educating patient, discussing with pcp/other providers, discussing with dependency case manager/social workers/dc planners, documenting/other paperwork and evaluating patient/reviewing data Status at Discharge: Cognitive status at discharge: cognitively intact , Behavioral status at discharge: cooperative , Functional status at discharge: independent ambulation , Overall status at discharge: patient is back to baseline Quality Metrics Clinical Quality Measures [ No reported AMI, CVA or VTE this stay] Coding Level of Care Code 15179 Total time (in minutes) for Discharge: 50 Diagnoses Chest pain R07.9 Hyperlipidemia E78.2 Hyperlipidemia type: mixed hyperlipidemia Hypertension I10 Headache R51.9
[2023-01-27 14:22] VITALS: BP 107/68; PULSE 72
== END 2023-01-27 15:55 | disposition home or self-care (01) ==
LOC: ER 20:48 → MEDSURG 21:02
PROVIDERS: Physician Assistant; Admitting Provider Internal Medicine; Emergency Provider Emergency Medicine; PCP Nurse Practitioner Family; Visit Provider Student in an Organized Health Care Education/Training Program
DX: R07.9 Chest pain, unspecified (principal); E78.2 Mixed hyperlipidemia; I10 Essential (primary) hypertension; R51.9 Headache, unspecified; R94.31 Abnormal electrocardiogram [ECG] [EKG]; I82.0 Budd-Chiari syndrome; R00.1 Bradycardia, unspecified; Z82.49 Family history of ischemic heart disease and other diseases of the circulatory system
CPT/HCPCS: 36415; 70496; 70498; 71045; 78452; 80048; 80053; 80061; 82607; 83036; 83540; 83550; 83690; 83735; 84484; 85025; 87486; 87581; 87633; 93005; 93017; 93306; 96365; 96372; 96374; 96375; 96376; 99285; A9500; G0378; J1644; J1885; J2270; J2405; J2765; J2785; J3010; J3475; J7030; Q9967

== ENCOUNTER → 2023-02-02 17:05 | Outpatient (BNVA) | payer MEDICARE, MEDICAID, SELFPAY | PROVIDERS: PCP Nurse Practitioner Family; Visit Provider Nurse Practitioner Family | DX: E04.1 Nontoxic single thyroid nodule (principal); R35.0 Frequency of micturition; I10 Essential (primary) hypertension; Z86.69 Personal history of other diseases of the nervous system and sense organs | CPT/HCPCS: 81000; 84439; 84443; 84481 ==

== ENCOUNTER → 2023-03-03 11:58 | Outpatient (BNVA) | payer MEDICARE, MEDICAID, SELFPAY | PROVIDERS: PCP Nurse Practitioner Family; Visit Provider Internal Medicine | DX: R07.89 Other chest pain (principal); E78.2 Mixed hyperlipidemia; I10 Essential (primary) hypertension | CPT/HCPCS: 99204 ==

== ENCOUNTER 2023-04-18 08:00 | Outpatient (CLI) | payer MEDICARE, MEDICAID, SELFPAY ==
--- NOTE | 2023-04-18 08:06 | CT_ITS ---
WS: [id number] CT ABDOMEN AND PELVIS NONCONTRAST HISTORY: MECHANICAL COMPLICATIONS OF VENTRICULAR COMMUNICATING SHUNT TECHNIQUE: Imaging performed through the abdomen and pelvis. Coronal and sagittal reformats are submi tted. All CT scans at [facility] use at least one of these dose optimization techniques: auto mated exposure control; mA and/or kV adjustment per patient size (includes targeted exams where dose is matched to clinical indication); or iterative reconstruction. DLP: 279.09 mGy COMPARISON: None available. Lower thorax: Lung bases are clear. Visualized heart is normal. No hiatal hernia. Liver: Normal size liver. Low-attenuation mass in the inferior RIGHT lobe of the liver measures 1.8 c m in diameter. Hounsfield units are elevated. No additional liver mass identified. Gallbladder: Prior cholecystectomy. Pancreas: Normal size and attenuation. Normal pancreatic duct. No pancreatitis or mass. Spleen: Normal. Adrenal glands: Normal. No mass. Right kidney: Normal size kidney with no mass or hydronephrosis. Left kidney: Normal size kidney with no mass or hydronephrosis. There is a small cystic area in the LEFT retrocrural region at the level of the diaphragm which is pr obably related to the lymphatic system. FAMILY AND CONSUMER SCIENCE PROFESSOR shunt catheter in the LEFT peritoneal cavity. No adjacent fluid collections. No tortuosity or abrupt kinking of the FAMILY AND CONSUMER SCIENCE PROFESSOR shunt catheter. Catheter terminates in t he LEFT upper quadrant. Aorta: Minimal atherosclerosis. No aneurysm. No free fluid, intraperitoneal air or significant lymphadenopathy. GI tract: Stomach is distended with fluid and food products. No small bowel obstruction. Increased fl uid in the cecum and RIGHT colon. Cecum extends deep within the pelvis. The appendix is not definitel y identified. No obstruction. No diverticulitis. Abdominal wall: Small umbilical hernia contains fat only. Pelvis: Enlarged anteverted uterus. Uterus measures at least 10.5 cm in length. Mildly hyperechoic ma ss from the posterior inferior uterine body consistent with a fibroid measuring 1.8 x 1.6 cm. Osseous structures: Unremarkable. IMPRESSION: 1. Low-attenuation mass in the RIGHT lobe of the liver measures 1.8 cm. Hounsfield units are elevate d. Differential includes benign and malignant processes. This could be a complex cyst or a metastatic lesion. Suggest follow-up ultrasound evaluation of the RIGHT upper quadrant. If this is not a cyst f ollow-up CT abdomen and pelvis with IV and oral contrast can be obtained. 2. Mild enlargement of the uterus measuring 10.5 cm with a fibroid. Uterus can be further evaluated by transvaginal ultrasound. 3. Fluid distended cecum extends deep within the RIGHT adnexa. The appendix is not definitely identi fied. For further evaluation of the GI tract colonoscopy or postcontrast CT abdomen and pelvis could be obtained. 4. FAMILY AND CONSUMER SCIENCE PROFESSOR shunt catheter with tip terminating in the LEFT upper quadrant. No associated fluid collection s.
== END 2023-04-18 08:01 | disposition home or self-care (01) ==
LOC: RAD 08:03
PROVIDERS: PCP Nurse Practitioner Family; Visit Provider Neurological Surgery
DX: T85.09XA Other mechanical complication of ventricular intracranial (communicating) shunt, initial encounter (principal); Y82.8 Other medical devices associated with adverse incidents; R16.0 Hepatomegaly, not elsewhere classified; N85.2 Hypertrophy of uterus; Z98.2 Presence of cerebrospinal fluid drainage device; R07.9 Chest pain, unspecified; Z79.899 Other long term (current) drug therapy
CPT/HCPCS: 36415; 74176; 80048; 99214

== ENCOUNTER 2023-05-05 09:44 | Outpatient (CLI) | payer MEDICARE, MEDICAID, SELFPAY ==
--- NOTE | 2023-05-05 11:15 | US_ITS ---
WS: [id number] US transvaginal 18966 HISTORY: N93.9 - Abnormal uterine and vaginal bleeding, unspecified COMPARISON: None available. Uterus: 9.0 cm x 5.0 cm x 5.0 cm. Mildly enlarged anteverted uterus. There is a hypoechoic mass exophytic from the posterior uterine johnny dy measuring 3.0 x 2.9 x 2.5 cm. No additional masses. Endometrium: 0.4 cm. Normal Right ovary: 2.6 cm x 1.4 cm x 2.0 cm. Normal size and vascularity, no cystic or solid masses. Left ovary: 2.5 cm x 1.8 cm x 2.2 cm. Normal size and vascularity, no cystic or solid masses. No free fluid in the cul-de-sac. IMPRESSION: 1. Posterior uterine fibroid measuring 3.0 x 2.9 x 2.5 cm. 2. Very mild uterine enlargement.
== END 2023-05-05 09:45 | disposition home or self-care (01) ==
PROVIDERS: PCP Nurse Practitioner Family; Visit Provider Nurse Practitioner Family
DX: N93.9 Abnormal uterine and vaginal bleeding, unspecified (principal); D25.9 Leiomyoma of uterus, unspecified
CPT/HCPCS: 76830

== ENCOUNTER → 2023-05-13 08:45 | Outpatient (BNVA) | payer MEDICARE, MEDICAID, SELFPAY | PROVIDERS: PCP Nurse Practitioner Family; Visit Provider Nurse Practitioner Family | DX: R07.9 Chest pain, unspecified (principal) | CPT/HCPCS: 99213 ==

== ENCOUNTER 2023-05-31 05:40 | Outpatient (CLI) | payer MEDICARE, MEDICAID, SELFPAY ==
[2023-05-31] VITALS (31 sets, daily range): BP systolic 98–138; BP diastolic 74–94; PULSE 56–68; RESP 11–19; TEMP 37; O2SAT 100; BMI 22.6
--- NOTE | 2023-05-31 06:00 | XACV_ITS ---
Exam Room: 2 Ht: 165 cm Wt: 62 kg BSA: 1.69 m2 Gender: Female : 1970 Any Known Allergies: Sulfa Exam Priority: Routine Procedure(s): Procedure Description: Diagnostic procedure Procedure Description: Left Heart Catheterization Procedure Description: Left ventriculography Procedure Description: Coronary Angiography Diagnostic Cath Status: Elective Diagnostic Findings * No significant disease noted in the Left Main, Left Anterior Descending, Right, or Circumflex coronary arteries. * Mid LAD has myocardial bridging. * Coronary angiography shows right dominance. Conclusions 1. No significant disease noted in the Left Main, Left Anterior Descending, Right, or Circumflex coronary arteries. 2. 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 3. Normal left ventricular systolic function. Ejection fraction of 60%. Recommendations * Aggressive risk factor modification. * Outpatient cardiology follow up in 2-4 weeks. Interventional RX Recommendation: medical therapy and/or counseling Diagnostic RX Recommendation: medical therapy and/or counseling Ventriculography Ejection Fraction: 60.0 % Pressures Phase:Rest AO : 139 / 83 ( 109 ) @ 8:49:00 AM 136 / 82 ( 107 ) @ 8:49:00 AM LV : 135 / -8 / 16 @ 8:47:00 AM 135 / -7 / 16 @ 8:47:00 AM 137 / 0 / 20 @ 8:49:00 AM 138 / 0 / 20 @ 8:49:00 AM Valves Phase:DefaultPhase AV : 0.0 @ 7:58:57 AM 0.0 @ 7:58:57 AM AV Mean Gradient: 0.0 @ 7:58:57 AM 0.0 @ 7:58:57 AM Clinical Evaluation EBL: 5mL-10mL Procedural Details Procedure Consent Obtained. Admit Source: Out Patient. Pre-Procedure Time Out. Identified patient by full name and date of as verbalized by the patient/guarantor. Does the consent match the physician's order: Yes. Accurate & Complete Informed Consent: Yes. Inpatient/Outpatient History & Physical on Chart: Yes. If H&P is completed, is and addenduem needed: No; If yes, is the addendum complete: N/A. Visualize and Verify Site with Patient/Guarantor: N/A. Relevant Radiology Images available: Yes. The risks, benefits, and alternatives of sedation and/or procedure were discussed by physician. The patient agrees to continue. Procedure started. [facility] Clinical Fraility Score: 3: Managing Well. Patcher Wood Welder Indications: Worsening Angina. Chest Pain Symptom Assessment: Atypical Angina Symptoms. Correct patient, site and procedure confirmed by cath team. Current diagnosis: Chest Pain, Abnormal stress test. PERRLA. Strong, equal hand social worker delinquency prevention bilaterally. Lungs clear x 5 lobes. IV Site on Arrival: 20 gauge in the left anticubital. IV Fluids: 0.9% NaCl at 75ml/hr. 0 mL infused prior to cathode washer. Pre Procedural Pulses: bilateral posterior tibial was 3+. Pre Procedural Pulses: bilateral dorsalis pedis was 3+. Pre Procedural Pulses: bilateral radial was 3+. Oxygen started at 2liters/min via nasal canula. right radial was prepped with chloroprep then draped in the usual sterile fashion. right groin was prepped with chloroprep then draped in the usual sterile fashion. Physician notified. Baseline sample Acquired. HR: 63 BPM. Physician arrived. Physician scrubbed in. Immediate Pre-Procedure Time Out. Correct Patient: Yes; Correct Procedure: Yes; Correct Site: Yes; Correct Patient Position: Yes; Correct Supplies: Yes; Dried Flammable Prep: Yes; Blood Products Available: No;. Lidocaine 1% infiltrated to the right radial. Arterial access obtained. A 5 marshallese TIG catheter in over wire. Multiple views taken of left coronary artery. Catheter redirected to the RCA. Multiple views taken of right coronary artery. Catheter removed over the exchange wire. A 5 marshallese Angled Pig catheter in over wire. EDP Sample taken: LV 135/-8,16; HR: 65 BPM; SpO2: 98%. LV gram performed in TORRES @ 10 mL/second for a total of 30 mL. EDP Sample taken: LV 137/0,20; HR: 71 BPM; SpO2: 98%. Pullback taken: LV 138/0,20; AO 139/83(109); Mean: 0mmHg, Peak to Peak: 0mmHg, SEP: 6sec/min; HR: 69 BPM; SpO2: 99%. Catheter out. A TR Band was successful obtaining hemostatsis at the Right Radial artery insertion site. Post Procedure: Pulses reassessed and unchanged. PERRLA. Strong, equal hand social worker delinquency prevention bilaterally. No VTE prophylaxis required. Medication's Wasted: Lidocaine 1% = 1 mL. Medication's Wasted: Nitro = 49.8 mg. Medication's Wasted: Other = 1000 heparin units. Total IV fluids: 27 mL. Post-op diagnosis: Normal LV function. non-obstructive CAD. Complications: none. Estimated blood loss: 5mL-10mL. Responsiveness - Normal response to verbal stimuli; alert and oriented, PERRLA. Airway - Unaffected, no intervention required; spontaneous ventilation. Circulation: W/N/L, pulses unchanged. Nausea/Vomiting: No. Procedure completed. Patient transferred by wheelchair to CPRU. Vital chart was stopped. Access Site Site: Right Radial artery Sheath Size: 6 Fr Hemostasis Method: TR Band Hemostasis Success: Successful Procedure Medications Start: 7:31 AM Stop: 7:31 AM Medication: Versed Amount: 1 mg Route: I.V. Start: 7:31 AM Stop: 7:31 AM Medication: Fentanyl Amount: 50 mcg Route: I.V. Start: 7:39 AM Stop: 7:39 AM Medication: Versed Amount: 1 mg Route: I.V. Start: 7:39 AM Stop: 7:39 AM Medication: Fentanyl Amount: 50 mcg Route: I.V. Start: 7:42 AM Stop: 7:42 AM Medication: Nitrogylcerin Amount: 200 mcg Route: I.A. Start: 7:43 AM Stop: 7:43 AM Medication: Heparin Amount: 5000 units Route: I.V. I, the attending physician, have reviewed and verified all procedure medications. Yes, all medications given per verbal order History/Risk Factors Hypertension: Yes Dyslipidemia: Yes Peripheral Arterial Disease (PAD): No Myocardial Infarction (MO): No Obesity: No Renal Disease: No Tobacco Use: Never Prior Interventions PCI: No CABG: No Valve Surgery: No Report Signatures Finalized by Lucius Loya MD on 05/31/2023 10:23 AM
[2023-05-31] MEDS: diphenhydrAMINE 50 mg Capsule PO (06:30)
[2023-05-31] MEDS: aspirin 325 mg Tablet PO (06:30)
[2023-05-31 06:40] LABS: Basophils % 0.7 %; Eosinophils # 0.2 10^3/uL (0.0-0.8); Eosinophils % 3.2 %; Hematocrit 32.3 % (36-47); Lymphocytes # 1.3 10^3/uL (0.8-4.8); Lymphocytes % 23.2 %; Mean Corpuscular Hemoglobin 27.9 pg (27-33); Mean Corpuscular Volume 90.2 fl (85-98); Mean Platelet Volume 10.2 fL (7.4-10.4); Monocytes # 0.4 10^3/uL (0.2-0.9); Monocytes % 8.2 %; Neutrophils # 3.46 10^3/uL (1.8-7.7); Neutrophils % 64.3 %; Nucleated Red Blood Cells % 0 %; Platelet Count 274 10^3/cmm (157-399); Red Blood Count 3.58 10^6/uL (3.85-5.65); Red Cell Distribution Width 12.8 % (12.1-15.1); White Blood Count 5.38 10^3/uL (3.29-11.43)
[2023-05-31 06:56] LABS: Anion Gap 11.6 (5-19); Blood Urea Nitrogen 12 mg/dL (6-20); Calcium 8.9 mg/dL (8.5-10.5); Carbon Dioxide 23 mmol/L (22-29); Chloride 108 mmol/L (98-107); Glomerular Filtration Rate 87.5 mL/min (90-130); Glucose 98 mg/dL (65-115); Osmolality Calculated 288 mOsm/kg (285-295); Potassium 3.6 mmol/L (3.5-5.1); Sodium 139 mmol/L (136-145)
--- NOTE | 2023-05-31 07:30 | P.HPUD_ITS ---
Surgery/Procedure H&P Update DATE OF PROCEDURE: May 31, 2023 DATE H&P PERFORMED: 05/13/23 H&P UPDATE INFORMATION: I have reviewed H&P completed within last 30 days, I have examined patient prior to procedure and No changes to prior documentation PREOP DIAGNOSIS: Worsening angina/ abnormal stress test PRIMARY INDICATION FOR PROCEDURE: Worsening angina/ abnormal stress test PLANNED PROCEDURE: Operation Date: 05/31/23 07:00 Proposed Procedures p [facility] [address]00,R07.9(Left) - Lucius Loya M.D Possible percutaneous coronary intervention PATIENT REASSESSED PRIOR TO SEDATION, WITH NO CHANGE NOTED: Yes PHYSICAL EXAM: alert, oriented x 3, clear to auscultation bilaterally and regular rate & rhythm AIRWAY EVAL/ANESTHESIA PLAN: normal airway, ASA III, Local Anesthesia, Risks, benefits & alternatives of sedation and/or procedure discussed and Patient agrees to continue as planned ADDITIONAL INFORMATION: Moderate sedation
[2023-05-31] MEDS: nitroglycerin 0.4 mg sublingual Tablet (08:46)
[2023-05-31] MEDS: nitroglycerin 0.4 mg sublingual Tablet SUBLINGUAL ×2 (10:19→10:27)
--- NOTE | 2023-05-31 10:52 | PC.NURSE ---
Pt c/o chest pain shooting through to her back and her BP was noted to be rising. Pt stated that NTG for some reason seems to help. I gave the pt a NTG 0.4mg SL and monitored the pt's BP and her pressure did come down a bit but was still ok 5 minutes after having received the first NTG. The pt stated that the pain was still present so I gave the pt a 2nd NTG tab SL and continued to monitor. After about 2-3 minutes, the pt stated that she could breathe easier and then the pain was gone. I took another BP and the pt's pressures were still good.
--- NOTE | 2023-05-31 11:29 | PC.NURSE ---
Discharge Note Patient discharged to [home] via [w/c to POV] accompanied by [family]. Discharge instructions reviewed with patient and/or factory representative. Mobile pharmacy medications and/or prescriptions provided. Belongings/home medications returned.
== END 2023-05-31 11:14 | disposition home or self-care (01) ==
LOC: CCL 05:40 → CSU 09:23
PROVIDERS: PCP Nurse Practitioner Family; Visit Provider Internal Medicine
DX: R07.9 Chest pain, unspecified (principal); R94.39 Abnormal result of other cardiovascular function study; I10 Essential (primary) hypertension; Z79.82 Long term (current) use of aspirin; E78.5 Hyperlipidemia, unspecified; Z82.49 Family history of ischemic heart disease and other diseases of the circulatory system
CPT/HCPCS: 36415; 80048; 85025; 93458; 96361; 96365; 99152; 99153; C1769; C1887; C1894; J1644; J2250; J3010; J3490; J7030; Q0163; Q9967

== ENCOUNTER → 2023-06-07 10:41 | Outpatient (BNVA) | payer MEDICARE, MEDICAID, SELFPAY | PROVIDERS: PCP Nurse Practitioner Family; Visit Provider Nurse Practitioner Family | DX: Q24.5 Malformation of coronary vessels (principal) | CPT/HCPCS: 99213 ==

== ENCOUNTER → 2023-09-01 14:09 | Outpatient (BNVA) | payer MEDICARE, MEDICAID, SELFPAY | PROVIDERS: PCP Nurse Practitioner Family; Visit Provider Internal Medicine | DX: R07.9 Chest pain, unspecified (principal); E78.2 Mixed hyperlipidemia; I10 Essential (primary) hypertension | CPT/HCPCS: 99214 ==

== ENCOUNTER → 2023-09-27 15:23 | Outpatient (BNVA) | payer MEDICARE, MEDICAID, SELFPAY | PROVIDERS: PCP Nurse Practitioner Family; Visit Provider Nurse Practitioner Family | DX: R68.89 Other general symptoms and signs (principal) | CPT/HCPCS: 87400 ==

== ENCOUNTER 2024-02-14 07:45 | Outpatient (CLI) | payer MEDICARE, MEDICAID, SELFPAY ==
--- NOTE | 2024-02-14 08:00 | CT_ITS ---
WS: [id number] CT HEAD TECHNIQUE: Noncontrast CT of the head obtained from the skullbase to the vertex. CLINICAL INFORMATION: W19.XXXA - Unspecified fall, initial encounter COMPARISON: CT 01/20/2023 DLP: 1028.[address] scans at [facility] use at least one of these dose optimization techniques: automated e xposure control; mA and/or kV adjustment per patient size (includes targeted exams where dose is matc hed to clinical indication); or iterative reconstruction. FINDINGS: No evidence of intracranial hemorrhage or mass effect. Stable appearance of described postoperative c hanges occipital craniotomy with suboccipital craniectomy for Chiari decompression. Chronic encephalomalacia LEFT parasagittal cerebellum. Normal 4th ventricle. No hydrocephalus. Benign basal ganglia calcifications. Vascular calcification. Paranasal sinuses and mastoid air cells well aerated. Normal posterior nasopharynx. CT/CT head wo con* [id number] IMPRESSION: 1. No evidence of intracranial hemorrhage or mass effect. 2. No significant changes since 01/20/2023. 3. No acute intracranial findings.
== END 2024-02-14 07:46 | disposition home or self-care (01) ==
LOC: RAD 07:46
PROVIDERS: PCP Nurse Practitioner Family; Visit Provider Nurse Practitioner Family
DX: W19.XXXA Unspecified fall, initial encounter (principal); G93.89 Other specified disorders of brain; G23.8 Other specified degenerative diseases of basal ganglia; Z98.890 Other specified postprocedural states
CPT/HCPCS: 70450

== ENCOUNTER → 2024-03-15 13:02 | Outpatient (BNVA) | payer MEDICARE, MEDICAID, SELFPAY | PROVIDERS: PCP Nurse Practitioner Family; Visit Provider Internal Medicine | DX: R07.9 Chest pain, unspecified (principal); E78.2 Mixed hyperlipidemia; I10 Essential (primary) hypertension | CPT/HCPCS: 99213 ==

== ENCOUNTER 2024-06-08 16:43 | Outpatient (CLI) | payer MEDICARE, MEDICAID, SELFPAY ==
--- NOTE | 2024-06-08 17:00 | US_ITS ---
WS: [id number] US pelvic complete* [id number] HISTORY: R10.2 - Pelvic and perineal pain COMPARISON: None available. Uterus: 8.0 cm x 4.9 cm x 4.2 cm. Normal size anteverted uterus. Fibroid in the posterior myometrium measures 2.2 x 2.5 cm. Similar to the prior study. Endometrium: 0.3 cm. Normal. Right ovary: 1.6 cm x 1.7 cm x 1.6 cm. Normal size and vascularity, no cystic or solid masses. Left ovary: LEFT ovary not identified. Small amount of free fluid in the cul-de-sac. US/US pelvic complete* [id number] IMPRESSION: 1. Uterine fibroid is unchanged since the prior study. Fibroid measures 2.2 x 2.5 cm. 2. LEFT ovary is not identified. 3. Very small amount of free fluid in the cul-de-sac is probably physiologic.
== END 2024-06-08 16:44 | disposition home or self-care (01) ==
LOC: RAD 16:43
PROVIDERS: PCP Nurse Practitioner Family; Visit Provider Nurse Practitioner Family
DX: D25.9 Leiomyoma of uterus, unspecified (principal); R10.2 Pelvic and perineal pain
CPT/HCPCS: 76856

== ENCOUNTER 2024-08-21 18:28 | Emergency (ER) | payer MEDICARE, SELFPAY ==
--- NOTE | 2024-08-21 18:32 | ECG_ITS ---
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 Measurements Intervals [place] Rate: 65 P: 41 [place]: 181 QRS: 66 QRSD: 136 T: -20 QT: 411 QTc: 428 Interpretive Statements SINUS RHYTHM RIGHT BUNDLE BRANCH BLOCK [120+ ms QRS DURATION, UPRIGHT V1, 40+ ms S IN I/aVL/V4/V5/V6] Compared to ECG 01/26/2023 22:20:27 Right bundle-branch block now present Intraventricular conduction delay no longer present Electronically Signed On 08-25-2024 23:17:14 DIRECTOR NEWS by Lucius Loya M.D. [id number]
[2024-08-21 18:35] VITALS: BP 158/98; PULSE 65; RESP 18; TEMP 36.8; BMI 23.3
--- NOTE | 2024-08-21 18:40 | XRR_ITS ---
PROCEDURE INFORMATION: Exam: XR Chest Exam date and time: 08/21/2024 6:48 PM Age: 54 years old Clinical indication: Pain; Chest pressure; Prior surgery; Surgery date: 6+ months; Surgery type: Breast implants; Additional info: Chest pain TECHNIQUE: Imaging protocol: Radiologic exam of the chest. Views: 1 view. COMPARISON: CR XR chest 1V portable [id number] 01/26/2023 3:25 PM FINDINGS: Lungs: Unremarkable. No consolidation. Pleural spaces: Unremarkable. No pleural effusion. No pneumothorax. Heart/Mediastinum: Unremarkable. No cardiomegaly. Bones/joints: Unremarkable. XR/XR chest 1V portable [id number] IMPRESSION: No acute findings.
--- NOTE | 2024-08-21 18:51 | ED_ITS ---
HPI - Chest Pain 2 General: Chief Complaint: Chest Pain Stated Complaint: bottom back heart pain Time Seen by Provider: 08/21/24 18:34 History of Present Illness: 54-year-old female with history of Chiar i malformation, anxiety and nonocclusive coronary artery disease who presents emergency room with chest pain. This is similar to what she has had 4-5 times over the last few months. She took some nitro at home which helped some with her blood pressure. She says her blood pressure was quite elevated there. She describes pain in her left chest that goes into her left back. This is similar to previous episodes. She had a cardiac catheterization back in September 2023 that showed a myocardial bridge/nonocclusive LAD disease. She had a stress test that showed some ischemic changes in the LAD region. She does have significant coronary artery disease in her family. No cough. No lower extremity swelling. She is neither tachycardic nor hypoxic on presentation. Blood pressure slightly elevated. Related Data Home Medications Medication Instructions Recorded Confirmed pregabalin 50 mg capsule 50 mg PO DAILY 09/22/22 05/18/24 baclofen 20 mg tablet 10 mg PO TID 10/27/23 05/18/24 erenumab-aooe 140 mg/mL mg SUBCUT 03/15/24 05/18/24 subcutaneous auto-injector (Aimovig Autoinjector) lisinopril 20 mg tablet See Rx Instructions .Route 03/15/24 05/18/24 .COMPLEX PRN Previous Rx's Medication Instructions Recorded topiramate 50 mg tablet See Rx Instructions .Route 12/09/23 .COMPLEX #180 tabs amlodipine 5 mg tablet See Rx Instructions .Route 01/24/24 .COMPLEX #180 tabs fluoxetine 20 mg capsule See Rx Instructions .Route 02/03/24 .COMPLEX #90 caps qqdogvsnej-eqzrjakdmxhgu-eenwmwkx 1 cap PO Q6H PRN pain #30 caps 02/07/24 50 mg-300 mg-40 mg capsule ondansetron HCl 4 mg tablet 4 mg PO DAILY PRN nausea and 02/07/24 vomiting 5 days #30 tabs tramadol 50 mg tablet 50 mg PO BID Pain #60 tabs 02/07/24 metoprolol succinate 25 mg 25 mg PO DAILY #90 tabs 03/01/24 tablet,extended release 24 hr diclofenac sodium 75 mg See Rx Instructions .Route 05/18/24 tablet,delayed release .COMPLEX #180 tabs nitroglycerin 0.4 mg sublingual See Rx Instructions .Route 06/05/24 tablet .COMPLEX #25 tabs Allergies Allergy/AdvReac Type Severity Reaction Status Date / Time Sulfa (Sulfonamide Allergy unknown Verified 05/18/24 09:08 Antibiotics) Review of Systems 2 Narrative: Constitutional symptoms: Negative except as documented in HPI. Skin symptoms: Negative except as documented in HPI. Eye symptoms: Negative except as documented in HPI. ENMT symptoms: Negative except as documented in HPI. Respiratory symptoms: Negative except as documented in HPI. Cardiovascular symptoms: Negative except as documented in HPI. Gastrointestinal symptoms: Negative except as documented in HPI. Genitourinary symptoms: Negative except as documented in HPI. Musculoskeletal symptoms: Negative except as documented in HPI. Neurologic symptoms: Negative except as documented in HPI. Psychiatric symptoms: Negative except as documented in HPI. Endocrine symptoms: Negative except as documented in HPI. PFSH ED 2 PFSH: Medical History Myocardial bridge History of Chiari malformation Anxiety Surgical History History of brain shunt Family History Mother CAD (coronary artery disease) Lung disease Father CAD (coronary artery disease) Social History Smoking and tobacco/nicotine status: never used tobacco/nicotine Second hand smoke exposure: No Alcohol intake: never Substance/Drug Use: never Adopted: No Lives independently: Yes Household members: children Current gender identity: Female Special mercedes needs: No Physical Exam 2 Narrative: EXAM NARRATIVE: General: Alert, no acute distress. Skin: Warm, dry. Head: Normocephalic, atraumatic. Neck: Supple, trachea midline. Eye: Extraocular movements are intact. Ears, nose, mouth and throat: mucosa moist. Cardiovascular: Regular, Normal peripheral perfusion. Respiratory: Lungs are clear to auscultation, respirations are non-labored, breath sounds are equal, Symmetrical chest wall expansion. Gastrointestinal: Soft, Nontender, Non distended Musculoskeletal: Normal ROM, no deformity. Neurological: Alert and oriented, No focal neurological deficit observed. Psychiatric: Cooperative, appropriate mood & affect. Course 2 Vital Signs: Vital signs: Vital Signs Temperature 98.2 F 08/21/24 18:35 Pulse Rate 67 08/21/24 19:36 Respiratory Rate 16 08/21/24 19:36 Blood Pressure 159/94 08/21/24 19:36 Pulse Oximetry 100 08/21/24 19:36 Oxygen Delivery Me thod Room Air 08/21/24 19:36 MDM - Chest Pain Medical Decision Making Differential diagnosis for patient with chest pain includes but is not limited to and based on the above HPI, review of systems and physical exam: Pneumonia. unstable angina. angina. Acute coronary syndrome / ID. Pulmonary embolism. Costochondritis / musculoskeletal. Pleurisy. Pericarditis. Esophageal spasm. Pancreatis. Cholecystitis. Orders placed to evaluate differential diagnosis based on the above differential, HPI and physical exam EKG: Normal sinus rhythm, No ST-T changes, no ectopy, right bundle branch block, This was reviewed and interpreted by myself the ER physician Chest x-ray: No acute process. No infiltrate. No pneumothorax. This was reviewed and interpreted by myself the emergency room physician. I also reviewed the radiology report. Lab Review: Laboratory results were reviewed and interpreted by myself the emergency room physician. No leukocytosis. No anemia. No renal failure. Serial cardiac markers are negative. I reviewed the patient's medical record. Consultation: I spoke with Dr. Loya, the patient's wire frame dipper. She had a recent cardiac cath that was negative for significant coronary disease. With her having serial negative troponins and a negative EKGs he recommends going home and he will have her do a stress test in the near future Reexamination: Patient remained stable. No increased work of breathing. No altered mental status. No focal motor deficits. Some improvement in pain with morphine and Toradol. Assessment and plan: Noncardiac chest pain -IV morphine and Zofran. Patient had nitro at home which did not really help. Also IV Toradol. Improvement in pain. Pain is atypical for chest pain. She describes a muscle cramping in her back that feels like it is on her heart she says. ? Discharged home - Discussed plan with patient. Answered any questions. - Evaluation and treatment of this problem were appropriate in the emergency setting. Lab Data 08/21/24 18:49 08/21/24 18:49 Radiology Impressions Chest X-Ray 08/21/24 18:40 IMPRESSION: No acute findings. Laboratory Results WBC 8.14 10^3/uL (3.29-11.43) 08/21/24 18:49 RBC 4.40 10^6/uL (3.85-5.65) 08/21/24 18:49 Hgb 13.20 g/dL (11.27-16.99) 08/21/24 18:49 Hct 40.9 % (36-47) 08/21/24 18:49 MCV 93.0 fl (85-98) 08/21/24 18:49 MCH 30.0 pg (27-33) 08/21/24 18:49 MCHC 32.3 g/dL (30-55) 08/21/24 18:49 RDW 13.1 % (12.1-15.1) 08/21/24 18:49 Plt Count 287 10^3/cmm (157-399) 08/21/24 18:49 MPV 10.8 fL (7.4-10.4) H 08/21/24 18:49 Neut % (Auto) 64.8 % 08/21/24 18:49 Lymph % (Auto) 25.9 % 08/21/24 18:49 [place] % (Auto) 6.9 % 08/21/24 18:49 Eos % (Auto) 1.5 % 08/21/24 18:49 Baso % (Auto) 0.5 % 08/21/24 18:49 Neut # (Auto) 5.28 10^3/uL (1.8-7.7) 08/21/24 18:49 Lymph # (Auto) 2.1 10^3/uL (0.8-4.8) 08/21/24 18:49 [place] # (Auto) 0.6 10^3/uL (0.2-0.9) 08/21/24 18:49 Eos # (Auto) 0.1 10^3/uL (0.0-0.8) 08/21/24 18:49 Baso # (Auto) 0.0 10^3/uL (0.0-0.1) 08/21/24 18:49 Nucleated RBC % (auto) 0 % 08/21/24 18:49 Nucleated RBCs # 0.0 /100WBC 08/21/24 18:49 Sodium 142 mmol/L (136-145) 08/21/24 18:49 Potassium 3.4 mmol/L (3.5-5.1) L 08/21/24 18:49 Chloride 105 mmol/L (98-107) 08/21/24 18:49 Carbon Dioxide 25 mmol/L (22-29) 08/21/24 18:49 Anion Gap 15.4 (5-19) 08/21/24 18:49 BUN 11 mg/dL (6-20) 08/21/24 18:49 Creatinine 0.7 mg/dL (0.5-0.9) 08/21/24 18:49 GFR Calculation 86.9 mL/min (90-130) L 08/21/24 18:49 Glucose 92 mg/dL (65-115) 08/21/24 18:49 Calculated Osmolality 293 mOsm/kg (285-295) 08/21/24 18:49 Calcium 9.9 mg/dL (8.5-10.5) 08/21/24 18:49 Total Bilirubin 0.3 mg/dL (0.15-1.2) 08/21/24 18:49 AST 14 U/L (0-32) 08/21/24 18:49 ALT 12 U/L (0-33) 08/21/24 18:49 Alkaline Phosphatase 112 U/L (35-105) H 08/21/24 18:49 Troponin T Baseline < 6 ng/L (0-10) 08/21/24 18:49 Troponin T 120 Minute 6.00 ng/L (0-10) 08/21/24 20:45 Delta Troponin T 0.99004 ABS# (0-10) 08/21/24 20:45 Total Protein 7.1 g/dL (6.6-8.7) 08/21/24 18:49 Albumin 4.6 g/dL (3.5-5.2) 08/21/24 18:49 Globulin 2.5 g/dL (1.3-4.6) 08/21/24 18:49 Urine Color Yellow (Yellow) 08/21/24 18:42 Urine Appearance Clear (CLEAR) 08/21/24 18:42 Urine pH 6.0 (5-7) 08/21/24 18:42 Ur Specific [place] 1.011 (1.005-1.030) 08/21/24 18:42 Urine Protein Negative (Negative) 08/21/24 18:42 Urine Glucose (UA) Negative (Normal) 08/21/24 18:42 Urine Ketones Negative (Negative) 08/21/24 18:42 Urine Blood Negative (Negative) 08/21/24 18:42 Urine Nitrate Negative (Negative) 08/21/24 18:42 Urine Bilirubin Negative (Negative) 08/21/24 18:42 Urine Urobilinogen 0.2 mg/dL (Negative) 08/21/24 18:42 Ur Leukocyte Esterase Negative (Negative) 08/21/24 18:42 Urine RBC 0-2 /hpf (0-2) 08/21/24 18:42 Urine WBC 0-5 /hpf (0-5) 08/21/24 18:42 Ur Squamous Epith Cells 0-5 /hpf (0-5) 08/21/24 18:42 Amorphous Sediment Not Reportable 08/21/24 18:42 Urine Bacteria None seen /hpf (NONE) 08/21/24 18:42 Hyaline Casts 0-4 /lpf H 08/21/24 18:42 All radiology interpretation(s) finalized by discharge Clincial Decision Support The following clinical decision support tools were used to aid in care of the patient HEART Score -> History: Moderately Suspicious, EKG: Normal, Age: 45-64 yrs, Risk Factors: 1 or 2 Risk Factors, Troponin: Baseline Trop <16 ng/L. Resulting HEART Score: 3. Discharge Plan Discharge Patient Disposition: Home Clinical Impression: Non-cardiac chest pain Condition: Stable Prescriptions: No Action pregabalin 50 mg capsule 50 mg PO DAILY baclofen 20 mg tablet 10 mg PO TID ahjnjoimvg-ffwocjticotfg-gfro 50-300-40 mg capsule 1 cap PO Q6H PRN (Reason: pain) Qty: 30 0RF ondansetron HCl 4 mg tablet 4 mg PO DAILY PRN (Reason: nausea and vomiting) 5 Days Qty: 30 0RF tramadol 50 mg tablet 50 mg PO BID Qty: 60 0RF lisinopril 20 mg tablet See Rx Instructions .ROUTE .COMPLEX PRN Dose Instruction: TAKE 1 TABLET BY MOUTH TWICE DAILY Rx Instructions: TAKE 1 TABLET BY MOUTH DAILY NEEDED FOR HIGH BLOOD PRESSURE Aimovig Autoinjector 140 mg/mL auto-injector SUBCUT diclofenac sodium 75 mg tablet,delayed release (DR/EC) See Rx Instructions .ROUTE .COMPLEX Qty: 180 0RF Dose Instruction: TAKE 1 TABLET BY MOUTH TWICE DAILY Rx Instructions: TAKE 1 TABLET BY MOUTH TWICE DAILY topiramate 50 mg tablet See Rx Instructions .ROUTE .COMPLEX Qty: 180 0RF Dose Instruction: TAKE 1 TABLET BY MOUTH TWICE DAILY Rx Instructions: TAKE 1 TABLET BY MOUTH TWICE DAILY amlodipine 5 mg tablet See Rx Instructions .ROUTE .COMPLEX Qty: 180 3RF Dose Instruction: TAKE 2 TABLETS BY MOUTH DAILY Rx Instructions: TAKE 2 TABLETS BY MOUTH DAILY fluoxetine 20 mg capsule See Rx Instructions .ROUTE .COMPLEX Qty: 90 0RF Dose Instruction: TAKE 1 CAPSULE BY MOUTH DAILY Rx Instructions: TAKE 1 CAPSULE BY MOUTH DAILY metoprolol succinate 25 mg tablet extended release 24 hr 25 mg PO DAILY Qty: 90 3RF nitroglycerin 0.4 mg tablet, sublingual See Rx Instructions .ROUTE .COMPLEX Qty: 25 2RF Dose Instruction: PLACE ONE TABLET UNDER TONGUE NEEDED FOR CHEST PAIN EVERY 5 MINUTES. DO NOT EXCEED 3 DOSES PER EPISODE. IF NO RELIEF CALL 911. Rx Instructions: PLACE ONE TABLET UNDER TONGUE NEEDED FOR CHEST PAIN EVERY 5 MINUTES. DO NOT EXCEED 3 DOSES PER EPISODE. IF NO RELIEF CALL 911. Discharge Orders: Discharge ED (Routine); Ordered 08/21/24 Ordered By: Linda Venegas Referrals: Ines Ivey FNP [Primary Care Provider] - Lucius Loya M.D [Physician] - 4-7 days (Please call for follow-up appointment with your wire frame dipper) Discharge Diet: Usual diet Discharge Activity: Increase activity as tolerated Patient Instructions: Noncardiac Chest Pain (ED), Opioid Safety, Pain Management Activity Restrictions/Additional Instructions: Thank you for choosing [facility] for your healthcare needs today. Please realize this is an emergency room and that we are providing you with a medical screening exam and this may not be complete and all inclusive of all the testing and or work up that you may need to determine your ailment or severity of your illness. You have been screened and evaluated and felt safe for discharge. Health conditions do change or evolve sometimes and as such it is important that you follow up with your Primary Doctor to be re checked, 3-5 days is a general good time frame for follow up. You are always welcome to return to the ED for re assessment if your symptoms are worsening or you have new concerns Coding Level of Care Code ED Rug Touch Up Painter for Andreina Lipscomb
[2024-08-21 19:05] LABS: Basophils % 0.5 %; Eosinophils # 0.1 10^3/uL (0.0-0.8); Eosinophils % 1.5 %; Hematocrit 40.9 % (36-47); Lymphocytes # 2.1 10^3/uL (0.8-4.8); Lymphocytes % 25.9 %; Mean Corpuscular HGB Conc 32.3 g/dL (30-55); Mean Platelet Volume 10.8 fL (7.4-10.4); Monocytes # 0.6 10^3/uL (0.2-0.9); Monocytes % 6.9 %; Neutrophils # 5.28 10^3/uL (1.8-7.7); Neutrophils % 64.8 %; Nucleated Red Blood Cells % 0 %; Platelet Count 287 10^3/cmm (157-399); Red Cell Distribution Width 13.1 % (12.1-15.1); White Blood Count 8.14 10^3/uL (3.29-11.43)
[2024-08-21] MEDS: ondansetron 2 mg/ML SDV 2 mL 4 MG IVP (19:07)
[2024-08-21] MEDS: morphine 4 mg/mL SDV 1 mL IVP (19:07)
[2024-08-21 19:16] LABS: Troponin(5th) Baseline < 6 ng/L (0-10)
[2024-08-21 19:25] LABS: Alanine Aminotransferase 12 U/L (0-33); Albumin Level 4.6 g/dL (3.5-5.2); Alkaline Phosphatase 112 U/L (35-105); Anion Gap 15.4 (5-19); Aspartate Amino Transferase 14 U/L (0-32); Blood Urea Nitrogen 11 mg/dL (6-20); Calcium 9.9 mg/dL (8.5-10.5); Carbon Dioxide 25 mmol/L (22-29); Chloride 105 mmol/L (98-107); Globulin 2.5 g/dL (1.3-4.6); Glomerular Filtration Rate 86.9 mL/min (90-130); Glucose 92 mg/dL (65-115); Osmolality Calculated 293 mOsm/kg (285-295); Potassium 3.4 mmol/L (3.5-5.1); Sodium 142 mmol/L (136-145); Total Bilirubin 0.3 mg/dL (0.15-1.2); Total Protein 7.1 g/dL (6.6-8.7)
[2024-08-21 19:36] VITALS: BP 159/94; PULSE 67; RESP 16; O2SAT 100
[2024-08-21 20:05] LABS: Bilirubin Urine Negative (Negative); Blood Urine Negative (Negative); Glucose Urine UA Negative (Normal); Ketones Urine Negative (Negative); Leukocyte Esterase Urine Negative (Negative); Nitrate Urine Negative (Negative); Protein Urine Negative (Negative); Specific Gravity, Urine 1.011 (1.005-1.030); Urine Appearance Clear (CLEAR); Urine Color Yellow (Yellow); Urobilinogen Urine 0.2 mg/dL (Negative)
[2024-08-21 20:08] LABS: Bacteria Urine None Seen /hpf; Hyaline Casts Urine 0-4 /lpf; RBC Urine 0-2 /hpf (0-2); Squamous Epithelial Cell Urine 0-5 /hpf (0-5); WBC Urine 0-5 /hpf (0-5)
[2024-08-21] MEDS: ketorolac 30 mg/mL INJ IVP (20:59)
[2024-08-21 21:22] LABS: Troponin 5 2HR Delta 0.00001 ABS# (0-10)
[2024-08-21 21:38] VITALS: BP 150/90; PULSE 74; RESP 18; O2SAT 99
[2024-08-21 21:39] VITALS: BP 150/90; PULSE 74; RESP 16; O2SAT 100
== END 2024-08-21 21:46 | disposition home or self-care (01) ==
PROVIDERS: Emergency Provider Emergency Medicine; PCP Nurse Practitioner Family
DX: R07.89 Other chest pain (principal)
CPT/HCPCS: 36415; 71045; 80053; 81001; 84484; 85025; 93005; 96374; 96375; 99285; J1885; J2270; J2405

== ENCOUNTER → 2024-08-28 09:10 | Outpatient (BNVA) | payer MEDICARE, SELFPAY | PROVIDERS: PCP Nurse Practitioner Family; Visit Provider Nurse Practitioner Family | DX: I10 Essential (primary) hypertension (principal); E55.9 Vitamin D deficiency, unspecified; M25.9 Joint disorder, unspecified | CPT/HCPCS: 80053; 82306; 84443 ==

== ENCOUNTER → 2024-09-20 14:22 | Outpatient (BNVA) | payer MEDICARE, SELFPAY | PROVIDERS: PCP Nurse Practitioner Family; Visit Provider Internal Medicine | DX: R07.89 Other chest pain (principal); E78.2 Mixed hyperlipidemia; I10 Essential (primary) hypertension | CPT/HCPCS: 99214 ==

== ENCOUNTER 2024-10-12 11:57 | Emergency (ER) | payer MEDICARE, SELFPAY ==
[2024-10-12 12:04] VITALS: BP 128/71; PULSE 52; RESP 14; TEMP 36.7; O2SAT 95
--- NOTE | 2024-10-12 12:04 | CT_ITS ---
WS: [id number] CT HEAD TECHNIQUE: Noncontrast CT of the head obtained from the skullbase to the vertex. CLINICAL INFORMATION: SLURRED SPEECH COMPARISON: None. DLP: All CT scans at [facility] use at least one of these dose optimization techniques: automated exposure control; mA and/or kV adjustment per patient size (includes targeted exams where dose is matched to clinical indication); or iterative reconstruction. FINDINGS: No evidence of intracranial hemorrhage or mass effect. Ventricular system and basal cisterns are patent. No extra-axial fluid collections. No evidence of mass or mass effect. Benign LEFT basal ganglia calcification. Subtle low- attenuation changes in the bilateral parasagittal parietal lobes can be seen with PRES n the appropriate clinical setting. Some of this may be due to beam hardening artifact. Paranasal sinuses and mastoid air cells are well aerated. .Normal visualized soft tissues. Postoperative changes posterior fossa. CT/CT head thrombolytic [id number] IMPRESSION: 1. No evidence of intracranial hemorrhage or mass effect. 2. Subtle low-attenuation change in the parasagittal posterior parietal lobes can be seen with PRES in the appropriate clinical setting. Some of this may be due to artifact. This can be followed up with MRI if indicated. Recommend corre lation with hypertension 3. Prior postoperative changes of occipital craniotomy with suboccipital decom pression. Encephalomalacia or resection cavity in the LEFT cerebellum unchanged . 4. Stable benign calcification LEFT basal ganglia. Notified Linda Venegas MD at 10/12/2024 12:15 PM.
--- NOTE | 2024-10-12 12:12 | ECG_ITS ---
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 Measurements Intervals [place] Rate: 49 P: 48 UT: 163 QRS: 21 QRSD: 134 T: 2 QT: 478 QTc: 433 Interpretive Statements SINUS BRADYCARDIA RIGHT BUNDLE BRANCH BLOCK [120+ ms QRS DURATION, UPRIGHT V1, 40+ ms S IN I/aVL/V4/V5/V6] Compared to ECG 08/21/2024 18:32:35 Sinus rhythm no longer present Electronically Signed On 10-12-2024 19:01:51 CDT by Lucius Loya M.D. [email or web address]
[2024-10-12] MEDS: valproic acid inj 500 MG in sodium chloride 0.9% 50 ML 100 MG IV (12:18)
[2024-10-12 12:21] LABS: Basophils % 0.9 %; Eosinophils # 0.1 10^3/uL (0.0-0.8); Eosinophils % 1.9 %; Hematocrit 41.8 % (36-47); Lymphocytes # 1.3 10^3/uL (0.8-4.8); Lymphocytes % 30.3 %; Mean Corpuscular HGB Conc 31.8 g/dL (30-55); Mean Corpuscular Hemoglobin 30.4 pg (27-33); Mean Corpuscular Volume 95.4 fl (85-98); Monocytes # 0.4 10^3/uL (0.2-0.9); Monocytes % 8.6 %; Neutrophils # 2.51 10^3/uL (1.8-7.7); Neutrophils % 58.1 %; Nucleated Red Blood Cells % 0 %; Platelet Count 269 10^3/cmm (157-399); Red Blood Count 4.38 10^6/uL (3.85-5.65); Red Cell Distribution Width 12.8 % (12.1-15.1); White Blood Count 4.32 10^3/uL (3.29-11.43)
[2024-10-12 12:33] LABS: INR 0.87 (0.8-1.2)
[2024-10-12 12:38] LABS: Alanine Aminotransferase 9 U/L (0-33); Albumin Level 4.3 g/dL (3.5-5.2); Alkaline Phosphatase 91 U/L (35-105); Aspartate Amino Transferase 12 U/L (0-32); Blood Urea Nitrogen 11 mg/dL (6-20); Calcium 8.9 mg/dL (8.5-10.5); Carbon Dioxide 23 mmol/L (22-29); Chloride 110 mmol/L (98-107); Globulin 2.7 g/dL (1.3-4.6); Glomerular Filtration Rate 74.5 mL/min (90-130); Glucose 58 mg/dL (65-115); Osmolality Calculated 293 mOsm/kg (285-295); Sodium 143 mmol/L (136-145); Total Bilirubin 0.5 mg/dL (0.15-1.2)
--- NOTE | 2024-10-12 12:43 | W.ED.NEUROSD ---
HPI - Neuro Symptoms/Deficit General: Chief Complaint: Neuro Symptoms/Deficit Stated Complaint: stroke alert Time Seen by Provider: 10/12/24 12:12 History of Present Illness: 54-year-old woman with a history of Chiari malformation, anxiety and nonocclusive coronary artery disease who presents emergency room with neurologic symptoms. Apparently she had had some slurred speech and some paresthesias. On presentation here she has no motor deficits. She does complain of some paresthesias. She received fentanyl for headache, on the ambulance ride. This may be contributing to her slurred speech at this time. She says she has symptoms like this sometimes when she gets headaches. Related Data Home Medications ?Medication ?Instructions ?Recorded ?Confirmed pregabalin 50 mg capsule 50 mg PO DAILY PRN nerve pain 09/22/22 10/12/24 erenumab-aooe 140 mg/mL 140 mg SUBCUT .Q30D 03/15/24 10/12/24 subcutaneous auto-injector (Aimovig Autoinjector) amlodipine 5 mg tablet 10 mg PO DAILY 10/12/24 10/12/24 baclofen 10 mg tablet 10 mg PO TID 10/12/24 10/12/24 diclofenac sodium 75 mg 75 mg PO BID 10/12/24 10/12/24 tablet,delayed release fluoxetine 20 mg capsule 20 mg PO DAILY 10/12/24 10/12/24 topiramate 100 mg tablet 100 mg PO BID 10/12/24 10/12/24 tramadol 50 mg tablet 50 mg PO BID PRN Pain 10/12/24 10/12/24 Previous Rx's ?Medication ?Instructions ?Recorded nitroglycerin 0.4 mg sublingual See Rx Instructions .Route 06/05/24 tablet .COMPLEX #25 tabs lisinopril 20 mg tablet 20 mg PO DAILY #90 tabs 08/28/24 potassium chloride 20 mEq 20 meq PO DAILY #90 tabs 08/29/24 tablet,extended release metoprolol succinate 50 mg 50 mg PO DAILY #90 tabs 09/20/24 tablet,extended release 24 hr Allergies Allergy/AdvReac Type Severity Reaction Status Date / Time Sulfa (Sulfonamide Allergy unknown Verified 10/12/24 12:19 Antibiotics) Review of Systems Narrative: Constitutional symptoms: Negative except as documented in HPI. Skin symptoms: Negative except as documented in HPI. Eye symptoms: Negative except as documented in HPI. ENMT symptoms: Negative except as documented in HPI. Respiratory symptoms: Negative except as documented in HPI. Cardiovascular symptoms: Negative except as documented in HPI. Gastrointestinal symptoms: Negative except as documented in HPI. Genitourinary symptoms: Negative except as documented in HPI. Musculoskeletal symptoms: Negative except as documented in HPI. Neurologic symptoms: Negative except as documented in HPI. Psychiatric symptoms: Negative except as documented in HPI. Endocrine symptoms: Negative except as documented in HPI. PFSH ED PFSH: Medical History Myocardial bridge History of Chiari malformation Anxiety Surgical History History of brain shunt Family History Mother CAD (coronary artery disease) Lung disease Father CAD (coronary artery disease) Social History Smoking and tobacco/nicotine status: never used tobacco/nicotine Second hand smoke exposure: No Alcohol intake: never Substance/Drug Use: never Adopted: No Lives independently: Yes Household members: children Current gender identity: Female Special mercedes needs: No Physical Exam Narrative: EXAM NARRATIVE: General: Alert, no acute distress. Skin: Warm, dry. Head: Normocephalic, atraumatic. Neck: Supple, trachea midline. Eye: Extraocular movements are intact. Ears, nose, mouth and throat: mucosa moist. Cardiovascular: Regular, Normal peripheral perfusion. Respiratory: Lungs are clear to auscultation, respirations are non-labored, breath sounds are equal, Symmetrical chest wall expansion. Gastrointestinal: Soft, Nontender, Non distended Musculoskeletal: Normal ROM, no deformity. Neurological: Alert and oriented, patient has some mildly slurred speech. No facial droop. No motor deficits. She does complain of some numbness on her left side on her shins and arm. She says her toes are tingling. Psychiatric: Cooperative, appropriate mood & affect. Course Vital Signs: Vital signs: Vital Signs Temperature 98.1 F 10/12/24 12:04 Pulse Rate 52 L 10/12/24 14:30 Respiratory Rate 16 10/12/24 14:30 Blood Pressure 144/86 10/12/24 14:30 Pulse Oximetry 100 10/12/24 14:30 Oxygen Delivery Me thod Room Air 10/12/24 14:04 MDM - Neuro Symptoms/Deficit Medical Decision Making Medical decision making: Differential diagnosis for patient with focal neurologic deficit(s) includes but not limited to and based on the above HPI, review of systems and physical exam: ischemic stroke, hemorrhagic stroke and embolic stroke secondary to atrial fibrillation), TIA, Montelongo's palsey, metabolic encephalopathy with previous stroke. Orders placed to evaluate differential diagnosis based on the above differential, HPI and physical exam Consultation: Dr. Simental saw the patient in the emergency room. She does not feel that this is stroke related and that most likely is related to her chronic headaches. We are treating that. Lab Review: Laboratory results were reviewed and interpreted by myself the emergency room physician. Lab work is unremarkable. No leukocytosis. No anemia. No renal failure. No UTI. CT head: No evidence of hemorrhage or mass effect. There are some changes in the parietal lobes. She may need an MRI as an outpatient. She is not hypertensive here so it is likely not press. Prior surgical changes.This was reviewed and interpreted by myself the ER physician. I reviewed the patient's medical record. Reexamination: Patient remained stable. No increased work of breathing. No altered mental status. No focal motor deficits. Headache is improving. Assessment and plan: Headache Paresthesias - Discharged home - Discussed plan with patient. Answered any questions. - Evaluation and treatment of this problem were appropriate in the emergency setting. Lab Data 10/12/24 12:16 10/12/24 12:[address] 10/12/24 12:04 IMPRESSION: 1. No evidence of intracranial hemorrhage or mass effect. 2. Subtle low-attenuation change in the parasagittal posterior parietal lobes can be seen with PRES in the appropriate clinical setting. Some of this may be due to artifact. This can be followed up with MRI if indicated. Recommend correlation with hypertension 3. Prior postoperative changes of occipital craniotomy with suboccipital decompression. Encephalomalacia or resection cavity in the LEFT cerebellum unchanged. 4. Stable benign calcification LEFT basal ganglia. Notified Linda Venegas MD at 10/12/2024 12:15 PM. Laboratory Results WBC 4.32 10^3/uL (3.29-11.43) 10/12/24 12:16 RBC 4.38 10^6/uL (3.85-5.65) 10/12/24 12:16 Hgb 13.30 g/dL (11.27-16.99) 10/12/24 12:16 Hct 41.8 % (36-47) 10/12/24 12:16 MCV 95.4 fl (85-98) 10/12/24 12:16 MCH 30.4 pg (27-33) 10/12/24 12:16 MCHC 31.8 g/dL (30-55) 10/12/24 12:16 RDW 12.8 % (12.1-15.1) 10/12/24 12:16 Plt Count 269 10^3/cmm (157-399) 10/12/24 12:16 MPV 11.0 fL (7.4-10.4) H 10/12/24 12:16 Neut % (Auto) 58.1 % 10/12/24 12:16 Lymph % (Auto) 30.3 % 10/12/24 12:16 Wirt % (Auto) 8.6 % 10/12/24 12:16 Eos % (Auto) 1.9 % 10/12/24 12:16 Baso % (Auto) 0.9 % 10/12/24 12:16 Neut # (Auto) 2.51 10^3/uL (1.8-7.7) 10/12/24 12:16 Lymph # (Auto) 1.3 10^3/uL (0.8-4.8) 10/12/24 12:16 Wirt # (Auto) 0.4 10^3/uL (0.2-0.9) 10/12/24 12:16 Eos # (Auto) 0.1 10^3/uL (0.0-0.8) 10/12/24 12:16 Baso # (Auto) 0.0 10^3/uL (0.0-0.1) 10/12/24 12:16 Nucleated RBC % (auto) 0 % 10/12/24 12:16 Nucleated RBCs # 0.0 /100WBC 10/12/24 12:16 PT 12.50 SECONDS (12.1-14.9) 10/12/24 12:16 INR 0.87 (0.8-1.2) 10/12/24 12:16 APTT 29.0 SECONDS (23.9-36.7) 10/12/24 12:16 Sodium 143 mmol/L (136-145) 10/12/24 12:16 Potassium 4.0 mmol/L (3.5-5.1) 10/12/24 12:16 Chloride 110 mmol/L (98-107) H 10/12/24 12:16 Carbon Dioxide 23 mmol/L (22-29) 10/12/24 12:16 Anion Gap 14.0 (5-19) 10/12/24 12:16 BUN 11 mg/dL (6-20) 10/12/24 12:16 Creatinine 0.8 mg/dL (0.5-0.9) 10/12/24 12:16 GFR Calculation 74.5 mL/min (90-130) L 10/12/24 12:16 Glucose 58 mg/dL (65-115) L 10/12/24 12:16 Calculated Osmolality 293 mOsm/kg (285-295) 10/12/24 12:16 Calcium 8.9 mg/dL (8.5-10.5) 10/12/24 12:16 Total Bilirubin 0.5 mg/dL (0.15-1.2) 10/12/24 12:16 AST 12 U/L (0-32) 10/12/24 12:16 ALT 9 U/L (0-33) 10/12/24 12:16 Alkaline Phosphatase 91 U/L (35-105) 10/12/24 12:16 Total Protein 7.0 g/dL (6.6-8.7) 10/12/24 12:16 Albumin 4.3 g/dL (3.5-5.2) 10/12/24 12:16 Globulin 2.7 g/dL (1.3-4.6) 10/12/24 12:16 Urine Color Yellow (Yellow) 10/12/24 13:43 Urine Appearance Clear (CLEAR) 10/12/24 13:43 Urine pH 6.0 (5-7) 10/12/24 13:43 Ur Specific Kuna 1.010 (1.005-1.030) 10/12/24 13:43 Urine Protein Negative (Negative) 10/12/24 13:43 Urine Glucose (UA) Negative (Normal) 10/12/24 13:43 Urine Ketones Negative (Negative) 10/12/24 13:43 Urine Blood Negative (Negative) 10/12/24 13:43 Urine Nitrate Negative (Negative) 10/12/24 13:43 Urine Bilirubin Negative (Negative) 10/12/24 13:43 Urine Urobilinogen 0.2 mg/dL (Negative) 10/12/24 13:43 Ur Leukocyte Esterase Negative (Negative) 10/12/24 13:43 Urine RBC 0-2 /hpf (0-2) 10/12/24 13:43 Urine WBC 0-5 /hpf (0-5) 10/12/24 13:43 Ur Squamous Epith Cells 0-5 /hpf (0-5) 10/12/24 13:43 Amorphous Sediment Not Reportable 10/12/24 13:43 Urine Bacteria 1+ /hpf (NONE) H 10/12/24 13:43 Hyaline Casts 0-4 /lpf H 10/12/24 13:43 All radiology interpretation(s) finalized by discharge Discharge Plan Discharge Patient Disposition: Home Clinical Impression: Facial paresthesia, Headache Condition: Stable Prescriptions: No Action pregabalin 50 mg capsule 50 mg PO DAILY PRN (Reason: nerve pain) lisinopril 20 mg tablet 20 mg PO DAILY Qty: 90 0RF Aimovig Autoinjector 140 mg/mL auto-injector 140 mg SUBCUT .Q30D metoprolol succinate 50 mg tablet extended release 24 hr 50 mg PO DAILY Qty: 90 3RF nitroglycerin 0.4 mg tablet, sublingual See Rx Instructions .ROUTE .COMPLEX Qty: 25 2RF Dose Instruction: PLACE ONE TABLET UNDER TONGUE NEEDED FOR CHEST PAIN EVERY 5 MINUTES. DO NOT EXCEED 3 DOSES PER EPISODE. IF NO RELIEF CALL 911. Rx Instructions: PLACE ONE TABLET UNDER TONGUE NEEDED FOR CHEST PAIN EVERY 5 MINUTES. DO NOT EXCEED 3 DOSES PER EPISODE. IF NO RELIEF CALL 911. potassium chloride 20 mEq tablet extended release 20 meq PO DAILY Qty: 90 0RF amlodipine 5 mg tablet 10 mg PO DAILY baclofen 10 mg tablet 10 mg PO TID topiramate 100 mg tablet 100 mg PO BID tramadol 50 mg tablet 50 mg PO BID PRN (Reason: Pain) diclofenac sodium 75 mg tablet,delayed release (DR/EC) 75 mg PO BID fluoxetine 20 mg capsule 20 mg PO DAILY Discharge Orders: Discharge ED (Routine); Ordered 10/12/24 Ordered By: Linda Venegas Referrals: Ines Ivey FNP [Primary Care Provider] - Discharge Diet: Usual diet Discharge Activity: Increase activity as tolerated Patient Instructions: Opioid Safety, Pain Management Activity Restrictions/Additional Instructions: Thank you for choosing [facility] for your healthcare needs today. Please realize this is an emergency room and that we are providing you with a medical screening exam and this may not be complete and all inclusive of all the testing and or work up that you may need to determine your ailment or severity of your illness. You have been screened and evaluated and felt safe for discharge. Health conditions do change or evolve sometimes and as such it is important that you follow up with your Primary Doctor to be re checked, 3-5 days is a general good time frame for follow up. You are always welcome to return to the ED for re assessment if your symptoms are worsening or you have new concerns Print Language: Slovak Coding Level of Care Code ED Crm System Administrator for Andreina Lipscomb
[2024-10-12 13:12] VITALS: BP 128/71; PULSE 44; O2SAT 97
[2024-10-12 13:58] LABS: Bilirubin Urine Negative (Negative); Blood Urine Negative (Negative); Glucose Urine UA Negative (Normal); Ketones Urine Negative (Negative); Leukocyte Esterase Urine Negative (Negative); Nitrate Urine Negative (Negative); Protein Urine Negative (Negative); Urine Appearance Clear (CLEAR); Urine Color Yellow (Yellow); Urobilinogen Urine 0.2 mg/dL (Negative)
[2024-10-12] MEDS: diphenhydrAMINE 50 mg/mL SDV 1mL IVP (13:59)
[2024-10-12] MEDS: ketorolac 30 mg/mL INJ IVP (13:59)
[2024-10-12] MEDS: orphenadrine 30 mg/mL Inj 2 mL 60 MG IVP (13:59)
[2024-10-12] MEDS: metoclopramide 5 mg/mL SDV 2 mL 10 MG IVP (13:59)
[2024-10-12 14:03] LABS: Bacteria Urine 1+ /hpf; Hyaline Casts Urine 0-4 /lpf; RBC Urine 0-2 /hpf (0-2); Squamous Epithelial Cell Urine 0-5 /hpf (0-5); WBC Urine 0-5 /hpf (0-5)
[2024-10-12 14:04] VITALS: BP 135/78; PULSE 49; O2SAT 97
[2024-10-12 14:30] VITALS: BP 144/86; PULSE 52; RESP 16; O2SAT 100
--- NOTE | 2024-10-12 17:49 | PM.SAN ---
Stroke Alert Activation ED Arrival Date: 10/12/24 ED Arrival Time: 12:04 ED Physican at Bedside: 12:05 Last Known Normal/at Baseline: < 1 hour ago Other Last Known Well Infomation: I was called stat for stroke alert and proceeded to the emergency department for this 54-year-old woman who reportedly had unilateral weakness and altered mental status. Dr. Venegsa and I arrived simultaneously as she was pulled out of the CAT scan. We performed an NIH stroke scale together at the bedside and found that she had slurred speech, a tremendous headache and no focal findings. She reported frequent severe headaches. Thorough neurologic exam was otherwise remarkable for a little bit of asymmetry of her sensory exam that I did not think was significant. Maximum score was 2 and I did not think she was a good candidate for TNK because her score was so low. I later found out that she had received some fentanyl for severe headache and once the fentanyl wore off, her speech returned to normal. Her headaches got better after a headache cocktail and Depacon. I stayed in touch with the nurse that was managing her care and with Dr. Venegas until her discharge. The patient reports that she started having headaches some years ago and was diagnosed with Chiari malformation by a female neurologist at [facility]. She was referred to a surgeon at [facility] who did suboccipital craniotomy and she regained the ability to walk and talk, as both were impaired prior to the procedure. I cannot find any records relating to her previous Surgery. She has long been managed by Rosario Ivey. She has been on topiramate for at least 5 years. She has a lumboperitoneal shunt. She frequently sees Ms. Ivey for headaches and for that she is on diclofenac, metoprolol, topiramate, pregabalin and Aimovig. It looks like she is also on butalbital. Stroke Alert Activated by: EMS Stroke Alert Activation Time: 11:45 Stroke MD @ Bedside Time: 12:05 NIH Stroke Scale Time: 12:06 NIH stroke score NIHSS: Level Of Consciousness - 1a: 0 Level Of Consciousness Questions - 1b: Both Correct Level Of Consciousness Commands - 1c: Both Correct Best Gaze - 2: Normal Visual Aguilar - 3: No Visual Loss Facial Palsy - 4: Normal Motor Arm Right - 5: No Drift Motor Arm Left - 5: No Drift Motor Leg Right - 6: No Drift Motor Leg Left - 6: No Drift Limb Ataxia - 7: Absent Sensory - 8: Mild To Moderate Loss Best Language - 9: No Aphasia Dysarthia - 10: Mild/Moderate Dysarthia Extinction And Inattention - 11: 0 Score: Total Score: 2 Stroke Alert Data/Treatment Time to CT of Head: 12:04 CT Results Time: 12:15 CT Impression: Dr. Venegas and I reviewed her CT scan of the head at 1205 [address] was normal[address] Dr[address] Lynch noticed a subtle low-attenuation change in the parasagittal posterior parietal lobes that he thought might be artifact versus press. First clinical symptoms were not consistent with press. He was able to appreciate her occipital craniotomy Stroke Risk Factors: depression (Migraine) tPA Contraindication: tPA Contraindication: Treatment not indcated tPA Admin Prior to Arrival: No Critical Care Time Critical Care Time: 30 - 74 mins A&P Assessment and plan (1) Chronic migraine without aura, intractable, with status migrainosus: She was brought in with strokelike symptoms and apparently at 1 point had left hemiparesis as well as slurred speech. The slurred speech seems to be from medication that she received prior to my visit with her as I learned that she got some fentanyl. In any case at the time of my exam she is nonfocal except for some probably not significant sensory asymmetry in the slurred speech. That looks toxic rather than ischemic and she was in agreement not to receive thrombolytic treatment. I gave her Depacon [address] Venegas later gave her a migraine cocktail and her headaches got better and she went home. She was advised to seek further neurologic evaluation and I am suspecting that she already has a neurologist although we did not talk about that. (2) History of Chiari malformation: (3) Chronic neck pain with history of cervical spinal surgery: (4) Chest pain: PDMP PDMP Reviewed: Not Reviewed Coding Level of Care Code Acute Code for [facility] Fwd Diagnoses Chronic migraine without aura, intractable, with status migrainosus G43.711 History of Chiari malformation Z86.69 Chronic neck pain with history of cervical spinal surgery M54.2; G89.28; Z98.890 Chest pain R07.9
== END 2024-10-12 14:32 | disposition home or self-care (01) ==
PROVIDERS: Emergency Provider Emergency Medicine; PCP Nurse Practitioner Family
DX: R20.2 Paresthesia of skin (principal); R51.9 Headache, unspecified; R00.1 Bradycardia, unspecified
CPT/HCPCS: 70450; 80053; 81001; 85025; 85610; 85730; 93005; 96365; 96375; 99285; J1200; J1885; J2360; J2765; J3490

== ENCOUNTER → 2025-04-02 14:02 | Outpatient (BNVA) | payer MEDICARE, SELFPAY | PROVIDERS: PCP Nurse Practitioner Family; Visit Provider Nurse Practitioner Family | DX: R53.83 Other fatigue (principal); I10 Essential (primary) hypertension | CPT/HCPCS: 80053; 80061; 85025 ==

== ENCOUNTER → 2025-06-20 13:48 | Outpatient (BNVA) | payer MEDICARE, MEDICAID, SELFPAY | PROVIDERS: PCP Nurse Practitioner Family; Visit Provider Internal Medicine | DX: Q24.5 Malformation of coronary vessels (principal) | CPT/HCPCS: 99214 ==